=== PATIENT | male | born 1985 | race Caucasian/White ===

== ENCOUNTER 2017-04-03 22:55 | Inpatient (IN) | payer SELFPAY ==
[~2017-04-03] VITALS: Ht 182.9 cm; Wt 117.2 kg
[2017-04-03] MEDS ORDERED: ONDANSETRON INJ 2 MG/ML 2 ML VIAL IV STA (23:24)
[2017-04-03] MEDS ORDERED: SODIUM CHLORIDE 0.9% 1000ML 1,000 ML IV STA (23:24)
[2017-04-03] MEDS: MoRPHine SULFATE 4 MG/ML 1 ML CARP\\VIAL IV PRN (23:58)
[2017-04-04 00:05] LABS: BASO % 0.1 %; BASO ABS # 0.01 K/uL (0-0.2); COMPLETE YES; EOS % 0.1 %; HEMATOCRIT 41.1 % (42-52); IG% 0.3 %; LYMPH ABS # 0.23 K/uL (1.2-3.4); MEAN CELL VOLUME 86.9 fL (80-100); MEAN CORPUSCULAR HEMOGLOBIN 30.9 pg (25-34); MEAN CORPUSCULAR HGB CONC 35.5 g/dl (32-36); MEAN PLATELET VOLUME 9.3 fL (7.4-10.4); MONO % 3.4 %; NEUT % 93.1 %; PLATELET COUNT 225 K/uL (130-400); RED BLOOD COUNT 4.73 M/uL (4.7-6.1); WHITE BLOOD COUNT 7.75 K/uL (4.8-10.8)
[2017-04-04 00:11] LABS: MANUAL MICROSCOPIC REQUIRED? NO; REVIEW REQ? NO; URINE APPEARANCE CLEAR (CLEAR); URINE BILIRUBIN NEG (NEG); URINE COLOR DK YELLOW; URINE EPITHELIAL CELL AUTO 0-5 /lpf (0-5); URINE NITRITE NEG (NEG); URINE PH 5.5 (4.5-7.5); URINE SPECIFIC GRAVITY 1.028 (1.000-1.030); UROBILINOGEN NEG (NEG); ZZUR CULT IF INDIC CLEAN CATCH NO
[2017-04-04 00:24] LABS: BUN/CREATININE RATIO 21.4 (10-20); CALCIUM 8.6 mg/dl (8.5-10.1); CREATININE 0.82 mg/dl (0.60-1.40); POTASSIUM 4.2 mmol/L (3.5-5.1)
[2017-04-04] MEDS: MoRPHine SULFATE 4 MG/ML 1 ML CARP\\VIAL IV PRN ×11 (01:57→23:59)
[2017-04-04] MEDS ORDERED: ACETAMINOPHEN 325 MG TAB PO PRN (04:30)
[2017-04-04] MEDS ORDERED: ONDANSETRON INJ 2 MG/ML 2 ML VIAL IV PRN (04:30)
[2017-04-04] MEDS ORDERED: ALUMINUM/MAGNESIUM/SIMETH (MAALOX MAX) 30 ML UDC PO PRN (04:30)
[2017-04-04] MEDS ORDERED: MAGNESIUM HYDROXIDE SUSP 30 ML UDC PO PRN (04:30)
[2017-04-04] MEDS ORDERED: ZOLPIDEM TARTRATE 5 MG TAB PO PRN (04:30)
[2017-04-04] MEDS ORDERED: POLYETHYLENE (MIRALAX) 17 GM PACK PO PRN (04:30)
[2017-04-04] MEDS ORDERED: CIPROFLOXACIN 400MG / 200ML D5W ONE (04:40)
[2017-04-04] MEDS ORDERED: METRONIDAZOLE 500MG / 100ML NSS ONE (04:40)
[2017-04-04] MEDS ORDERED: METHYLPREDNISOLONE 125 MG VIAL IV STA (04:42)
--- NOTE | 2017-04-04 04:42 | History and Physical ---
History & Physical Date & Time of Service: Apr 04, 2017 at 04:08 Chief Complaint: Acute Crohns Flare-Up Primary Care Physician: No Doctor, Assigned History of Present Illness Source: patient 31M with a PMHX of Crohn's presents with a one day history of abdominal pain. 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 Pt does not have a PCP because he doesn't have insurance. He has not had diarrhea, just one loose stools today. Pt denies blood in the stool. Pt's last Crohn's flare was several years ago. Pt has not been taking his Remicade because he doesn't have insurance. ROS: No chest pain, no SOB, no dyspnea on exertion, no palpitations, no fevers, no chills, no nausea, no vomiting, no dysuria, no rash. PSHx: tonsillectomy Meds: used to take Adderrall but can't afford it now because he's not insured. SHx: non smoker, denies illicit substance abuse. Past Medical/Surgical History Medical Problems: (1) Crohns disease Status: Chronic Family History FH: cancer FH: heart disease Hypertension Social History Smoking Status: Never Smoker Smokeless Tobacco Use: No Alcohol Use: none Drug Use: none, heroin Marital Status: single Occupational Status: employed, [employer] student Immunizations History of Influenza Vaccine: Unknown History of Tetanus Vaccine?: Unknown History of Pneumococcal: Unknown History of Hepatitis B Vaccine: Unknown Multi-Drug Resistant Organisms History of MDRO: No Allergies Coded Allergies: NSAIDs (Verified Adverse Reaction, Severe, CHROHNS DISEASE, 04/03/17) Home Medications No Active Prescriptions or Reported Meds Review of Systems Constitutional: No fever, No chills Respiratory: No cough, No sputum, No shortness of breath Cardiovascular: No chest pain Abdomen: + pain, + nausea, No constipation Musculoskeletal: No joint pain Genitourinary - Male: No dysuria, No urinary hesitancy Integumentary: No rash Physical Exam Vital Signs Date Time Temp Pulse Resp B/P (MAP) Pulse Ox O2 Delivery O2 Flow Rate FiO2 04/04/17 03:53 113 20 130/68 96 Room Air 04/04/17 02:00 103 20 102/77 100 Room Air 04/04/17 01:00 103 20 154/84 100 Room Air 04/03/17 23:59 90 16 133/72 100 Room Air 04/03/17 22:59 37.0 108 20 143/90 97 General Appearance: WD/WN, no apparent distress Head: normocephalic Neck: supple, no JVD Respiratory/Chest: chest non-tender, lungs clear, normal breath sounds, no respiratory distress, no accessory muscle use Cardiovascular: regular rate, rhythm, no edema, no gallop, no JVD, no murmur, normal peripheral pulses Abdomen/GI: normal bowel sounds, soft, + pertinent finding (warm abdomen, rebound in the RLQ, tender to deep palpation in the RLQ) Back: no muscle spasm Extremities/Musculoskelatal: normal inspection, no calf tenderness, normal capillary refill, no pedal edema, normal range of motion Neurologic/Psych: no motor/sensory deficits, alert, normal reflexes, oriented x 3 Skin: no rash Diagnostics Laboratory Results Results Past 24 Hours Test 04/03/17 23:51 04/03/17 23:55 Range/Units Urine Color DK YELLOW Urine Appearance CLEAR CLEAR Urine pH 5.5 4.5-7.5 Urine Specific [place] 1.028 1.000-1.030 Urine Protein NEG NEG Urine Glucose (UA) NEG NEG Urine Ketones NEG NEG Urine Occult Blood NEG NEG Urine Nitrite NEG NEG Urine Bilirubin NEG NEG Urine Urobilinogen NEG NEG Urine Leukocyte Esterase NEG NEG Urine WBC (Auto) 0 0-5 /hpf Urine RBC (Auto) 0-4 0-4 /hpf Urine Hyaline Casts (Auto) 0 0-5 /lpf Urine Epithelial Cells (Auto) 0-5 0-5 /lpf Urine Bacteria (Auto) NEG NEG White Blood Count 7.75 4.8-10.8 K/uL Red Blood Count 4.73 4.7-6.1 M/uL Hemoglobin 14.6 14.0-18.0 g/dL Hematocrit 41.1 42-52 % Mean Corpuscular Volume 86.9 80-100 fL Mean Corpuscular Hemoglobin 30.9 25-34 pg Mean Corpuscular Hemoglobin Concent 35.5 32-36 g/dl Platelet Count 225 130-400 K/uL Mean Platelet Volume 9.3 7.4-10.4 fL Neutrophils (%) (Auto) 93.1 % Lymphocytes (%) (Auto) 3.0 % Monocytes (%) (Auto) 3.4 % Eosinophils (%) (Auto) 0.1 % Basophils (%) (Auto) 0.1 % Neutrophils # (Auto) 7.22 1.4-6.5 K/uL Lymphocytes # (Auto) 0.23 1.2-3.4 K/uL Monocytes # (Auto) 0.26 0.11-0.59 K/uL Eosinophils # (Auto) 0.01 0-0.5 K/uL Basophils # (Auto) 0.01 0-0.2 K/uL RDW Standard Deviation 39.4 36.4-46.3 fL RDW Coefficient of Variation 12.3 11.5-14.5 % Immature Granulocyte % (Auto) 0.3 % Immature Granulocyte # (Auto) 0.02 0.00-0.02 K/uL Sodium Level 141 136-145 mmol/L Potassium Level 4.2 3.5-5.1 mmol/L Chloride Level 109 98-107 mmol/L Carbon Dioxide Level 24 21-32 mmol/L Anion Gap 8.0 3-11 mmol/L Blood Urea Nitrogen 18 7-18 mg/dl Creatinine 0.82 0.60-1.40 mg/dl Est Creatinine Clear Calc Drug Dose 174.1 ml/min Estimated GFR () 137.5 Estimated GFR (Non- 118.7 BUN/Creatinine Ratio 21.4 10-20 Random Glucose 94 70-99 mg/dl Calcium Level 8.6 8.5-10.1 mg/dl Total Bilirubin 0.9 0.2-1 mg/dl Direct Bilirubin 0.2 0-0.2 mg/dl Aspartate Amino Transf (AST/SGOT) 18 15-37 U/L Alanine Aminotransferase (ALT/SGPT) 29 12-78 U/L Alkaline Phosphatase 97 45-117 U/L Total Protein 6.7 6.4-8.2 gm/dl Albumin 3.5 3.4-5.0 gm/dl Lipase 82 73-393 U/L Impression Assessment and Plan 31M with a PMHX of Crohn's p/w a one day history of abdominal pain. CT findings are consistent with a crohn's flare. Pt was admitted for treatment with steroids, Abx and IVF. Morphine is on for pain control. GI consulted ( Dr. Baxter). Abdominal Pain 2/2 Crohn's Flare - Solu-Medrol 60mg IV Q6 - Cipro 400mg Q12 IV + Flagyl 500m Q8 IV - NPO - Zofran PRN - IVF 125mls/hr - Pain control with Morphine IV 3mg Q2H - GI Consult in Place - Famotidine IV 20mg BID DVT Proph: SCDs Social - No insurance Dispo - Med Surg, Admit, NPO Full Code Attending Addendum: I have physically seen and examined this patient, have directed the resident's medical activities, and agree with the H&P as noted above with the following exceptions as noted. The patient is awake, alert and oriented 3, well-developed and well-nourished , normocephalic and atraumatic, lying in bed and in no acute distress. HEENT--PERRL, EOMI, mucous membranes and oropharynx dry. Neck--supple, no JVD or bruits, thyroid normal, trachea midline, no adenopathy. Heart--normal S1 and S2, no extra beats, no murmurs, rubs or gallops. Lungs--clear bilaterally with good air movement, no respiratory distress, no accessory muscle use. Abdomen--normal bowel sounds and soft, mild generalized tenderness, worse right lower quadrant. Nondistended, no hernias or masses, no organomegaly. Extremities--no cyanosis, clubbing or edema. There are good distal pulses b/l. Dermatologic--normal skin turgor, normal color, warm and dry, no abnormal lymph nodes, no rash. Neurologic--cranial nerves II through XII grossly intact, motor and sensory examination normal. Rheumatologic--normal range of motion, nontender, muscles and joints. Psychiatric--normal affect. Assessment and Plan: Crohn's exacerbation-- Nothing by mouth Solu-Medrol 60 mg IV every 6 hours Cipro 400 mg IV every 12 hours. Flagyl 500 mg IV every 8 hours Famotidine 20 mg IV every 12 hours. Normal saline with KCl 20 mEq 125mils per hour Morphine 3 mg IV every 2 hours when necessary Zofran 4 mg IV every 6 hours when necessary Consult gastroenterology. Level of Care Med/Surg Advanced Directives Existing Advance Directive: No Existing Living Will: No Existing Power of Manager Urgent Care: No Resuscitation Status FULL RESUSCITATION VTE Prophylaxis Risk Level: Low Resident Involvement: Resident Care Provided Care Provided: Adult Hospital Medicine
[2017-04-04] MEDS ORDERED: ONDANSETRON 4MG OD TAB PO PRN (04:45)
[2017-04-04] MEDS: CIPROFLOXACIN / D5W 400 MG in PREMIXED IN D5W 200 ML IV SCH ×2 (04:48→17:27)
[2017-04-04] MEDS: METRONIDAZOLE / NSS 500 MG in PREMIXED NSS 100 ML IV SCH ×3 (04:49→19:24)
--- NOTE | 2017-04-04 04:58 | EMERGENCY ROOM VISIT NOTE ---
History Report prepared by [place]: Michelle Sims Under the Supervision of: Dr. Abdullahi Magallanes D.O. First contact with patient: 23:12 Chief Complaint: OTHER COMPLAINT Stated Complaint: ACUTE CROHNS FLARE-UP History of Present Illness The patient is a 31 year old male who presents to the Emergency Room with complaints of intermittent abdominal pain starting 1100 this morning. The patient has a history of Crohn's disease. He experiences flare ups with stress and taking NSAIDs. He has been under stress at work recently and taking NSAIDs for a toothache. This morning, he started feeling the pain and stopped eating. He usually stops eating and drinks fluids when his Crohn's flare ups occur. He last ate food at 1100. The pain comes every 3-4 minutes. He describes it at stabbing. He has been taking Tylenol to no significant relief. He reports nausea and diarrhea. He denies vomiting. His last bowel movement was earlier today. Source of History: patient Onset: 1100 this morning Position: abdomen Quality: stabbing Timing: intermittent Associated Symptoms: + nausea, + diarrhea, No vomiting Review of Systems See HPI for pertinent positives & negatives. A total of 10 systems reviewed and were otherwise negative. Past Medical & Surgical Medical Problems: (1) Crohn's colitis (2) Crohns disease Family History FH: cancer FH: heart disease Hypertension Social History Smoking Status: Never Smoker Alcohol Use: occasionally Drug Use: heroin Marital Status: single Housing Status: lives with roommate Occupation Status: employed, [employer] student Current/Historical Medications No Active Prescriptions or Reported Meds Allergies Coded Allergies: NSAIDs (Verified Adverse Reaction, Severe, CHROHNS DISEASE, 04/03/17) Physical Exam Vital Signs Date Time Temp Pulse Resp B/P (MAP) Pulse Ox O2 Delivery O2 Flow Rate FiO2 04/04/17 03:53 113 20 130/68 96 Room Air 04/04/17 02:00 103 20 102/77 100 Room Air 04/04/17 01:00 103 20 154/84 100 Room Air 04/03/17 23:59 90 16 133/72 100 Room Air 04/03/17 22:59 37.0 108 20 143/90 97 Physical Exam CONSTITUTIONAL/VITAL SIGNS: Reviewed / noted above. GENERAL: Non-toxic in appearance. INTEGUMENTARY: Warm, dry, and [place]. HEAD: Normocephalic. EYES: without scleral icterus or trauma. ENT/OROPHARYNX: clear and moist. LYMPHADENOPATHY/NECK: Is supple without lymphadenopathy or meningismus. RESPIRATORY: Lungs clear and equal. CARDIOVASCULAR: Regular rate and rhythm. GI/ABDOMEN: Soft. Mild mid abdominal tenderness. No organomegaly or pulsatile mass. No rebound or guarding. Normal bowel sounds. EXTREMITIES: Warm and well perfused. BACK: No CVA tenderness. NEUROLOGICAL: Intact without focal deficits. PSYCHIATRIC: normal affect. MUSCULOSKELETAL: Normally developed with good muscle tone. Medical Decision & Procedures ER Provider Diagnostic Interpretation: X ray results and stated below per my interpretation and radiology review. Radiology results as stated below per my review and [facility] radiologist interpretation: Chest/Abdomen X-ray: Multiple air-fluid levels. Possible bilious vs small bowel obstruction. Chest X- ray shows no acute disease. CT Abdomen & Pelvis: Comparison: CT abdomen and pelvis 04/29/13. Circumferential wall thickening of the distal ileum with upstream small bowel dilatation. Findings are compatible with Crohn's flare. There is trace free fluid in the right lower quadrant. Small bowel feces sign in the lower mid abdomen with focal small bowel dilatation to 5.3 cm. There is mild focal luminal narrowing (axial image 82) with slightly less small bowel dilatation distally. This may represent a mild area of structuring. Normal appendix. No free air. Laboratory Results 04/03/17 23:55 Red Blood Count 4.73, Mean Corpuscular Volume 86.9, Mean Corpuscular Hemoglobin 30.9, Mean Corpuscular Hemoglobin Concent 35.5, Mean Platelet Volume 9.3, Neutrophils (%) (Auto) 93.1, Lymphocytes (%) (Auto) 3.0, Monocytes (%) (Auto) 3.4, Eosinophils (%) (Auto) 0.1, Basophils (%) (Auto) 0.1, Neutrophils # (Auto) 7.22, Lymphocytes # (Auto) 0.23, Monocytes # (Auto) 0.26, Eosinophils # (Auto) 0.01, Basophils # (Auto) 0.01 04/03/17 23:55 Test 04/03/17 23:51 04/03/17 23:55 Urine Color DK YELLOW Urine Appearance CLEAR (CLEAR) Urine pH 5.5 (4.5-7.5) Urine Specific [place] 1.028 (1.000-1.030) Urine Protein NEG (NEG) Urine Glucose (UA) NEG (NEG) Urine Ketones NEG (NEG) Urine Occult Blood NEG (NEG) Urine Nitrite NEG (NEG) Urine Bilirubin NEG (NEG) Urine Urobilinogen NEG (NEG) Urine Leukocyte Esterase NEG (NEG) Urine WBC (Auto) 0 /hpf (0-5) Urine RBC (Auto) 0-4 /hpf (0-4) Urine Hyaline Casts (Auto) 0 /lpf (0-5) Urine Epithelial Cells (Auto) 0-5 /lpf (0-5) Urine Bacteria (Auto) NEG (NEG) White Blood Count 7.75 K/uL (4.8-10.8) Red Blood Count 4.73 M/uL (4.7-6.1) Hemoglobin 14.6 g/dL (14.0-18.0) Hematocrit 41.1 % (42-52) Mean Corpuscular Volume 86.9 fL (80-100) Mean Corpuscular Hemoglobin 30.9 pg (25-34) Mean Corpuscular Hemoglobin Concent 35.5 g/dl (32-36) Platelet Count 225 K/uL (130-400) Mean Platelet Volume 9.3 fL (7.4-10.4) Neutrophils (%) (Auto) 93.1 % Lymphocytes (%) (Auto) 3.0 % Monocytes (%) (Auto) 3.4 % Eosinophils (%) (Auto) 0.1 % Basophils (%) (Auto) 0.1 % Neutrophils # (Auto) 7.22 K/uL (1.4-6.5) Lymphocytes # (Auto) 0.23 K/uL (1.2-3.4) Monocytes # (Auto) 0.26 K/uL (0.11-0.59) Eosinophils # (Auto) 0.01 K/uL (0-0.5) Basophils # (Auto) 0.01 K/uL (0-0.2) RDW Standard Deviation 39.4 fL (36.4-46.3) RDW Coefficient of Variation 12.3 % (11.5-14.5) Immature Granulocyte % (Auto) 0.3 % Immature Granulocyte # (Auto) 0.02 K/uL (0.00-0.02) Anion Gap 8.0 mmol/L (3-11) Est Creatinine Clear Calc Drug Dose 174.1 ml/min Estimated GFR () 137.5 Estimated GFR (Non- 118.7 BUN/Creatinine Ratio 21.4 (10-20) Calcium Level 8.6 mg/dl (8.5-10.1) Total Bilirubin 0.9 mg/dl (0.2-1) Direct Bilirubin 0.2 mg/dl (0-0.2) Aspartate Amino Transf (AST/SGOT) 18 U/L (15-37) Alanine Aminotransferase (ALT/SGPT) 29 U/L (12-78) Alkaline Phosphatase 97 U/L (45-117) Total Protein 6.7 gm/dl (6.4-8.2) Albumin 3.5 gm/dl (3.4-5.0) Lipase 82 U/L (73-393) Laboratory results as stated above per my review. Medications Administered Medications (Trade) Dose Ordered Sig/Mayda Route Start Time Stop Time Status Last Admin Dose Admin Sodium Chloride 1,000 ml @ 999 mls/hr Q1H1M STAT IV 04/03/17 23:24 04/04/17 00:24 DC 04/03/17 23:53 999 MLS/HR Ondansetron HCl (Zofran Inj) 4 mg NOW STAT IV 04/03/17 23:24 04/03/17 23:26 DC 04/03/17 23:53 4 MG Morphine Sulfate (MoRPHine SULFATE INJ) 4 mg Q1H PRN IV 04/03/17 23:30 04/04/17 04:43 DC 04/04/17 03:53 4 MG Metronidazole 500 mg/Prmx 100 ml @ 100 mls/hr Q8H IV 04/04/17 04:30 04/14/17 04:29 04/04/17 04:49 100 MLS/HR Ciprofloxacin/ Dextrose 400 mg/ Prmx 200 ml @ 100 mls/hr Q12H IV 04/04/17 05:00 04/14/17 04:59 04/04/17 04:48 100 MLS/HR Methylprednisolone Sodium Succinate (Solu-Medrol IV) 60 mg NOW STAT IV 04/04/17 04:42 04/04/17 04:43 DC 04/04/17 04:50 60 MG ED Course 2316: Previous medical records were reviewed. The patient was evaluated in room C12B. A complete history and physical examination was performed. 2324: Zofran Inj 4 mg IV, NSS 1000 ml @ 999 mls/hr IV. 2330: Morphine Sulfate 4 mg IV. 0150: I reevaluated the patient. He is resting comfortably. He will go for a CT. 0343: On reevaluation, the patient is resting comfortably. I discussed the results and findings with him. He verbalized agreement of the treatment plan. The patient will be evaluated for further management and care. 0351: I discussed the patient's case with Dr. Calvillo, [facility] hospitalist. The patient will be evaluated for further treatment and disposition. Medical Decision Differential considered: pancreatitis, hepatitis, or acute cholecystitis, AAA, UTI, pyelonephritis, kidney stones, appendicitis, diverticulitis, shingles, bowel obstruction mesenteric ischemia, intussusception,hernia, testicular torsion. This is a 31-year-old male who presents to the ED with a chief complaint of a possible Crohn's flare. The patient states that he has an ulcer in his ileum and has had nausea and pain in the supraumbilical area. He states this is similar to previous Crohn's flare. He has not followed up with a GI specialist for more than a year. He is not taking any medications for Crohn's disease. Based on review of his records here, he does have a history of Crohn's disease. Reports a little diarrhea. No blood in the stools. He denies any vomiting but has had a little nausea. His vital signs are stable. His physical exam reveals some mild tenderness in the periumbilical area. He does not appear to be in any distress. He does not appear to be uncomfortable. He initially declined CT scan as he states he has no insurance. His CBC is normal, urine did not show infection, complete metabolic panel was normal, acute abdominal series xray did show partial obstructive changes but no acute pulmonary process. A CT scan of the abdomen and pelvis was then performed. This revealed findings concerning for acute Crohn's flare. He was treated with IV morphine, IV Zofran and IV fluids. He was told the results of the tests. The patient will be seen by the hospitalist service for further inpatient evaluation and care. Medication Reconcilliation Current Medication List: was personally reviewed by me Blood Pressure Screening Patient's blood pressure: Normal blood pressure Blood pressure disposition: Did not require urgent referral Consults Time Called: 034 Consulting Physician: Dr. Calvillo, [facility] hospitalist Returned Call: [phone] Discussed the patient's case. The patient will be evaluated for further treatment and disposition. Impression Primary Impression: Abdominal pain Additional Impression: Crohn's colitis Scribe Attestation The scribe's documentation has been prepared under my direction and personally reviewed by me in its entirety. I confirm that the note above accurately reflects all work, treatment, procedures, and medical decision making performed by me. Departure Information Dispostion Being Evaluated By Hospitalist Prescriptions No Active Prescriptions or Reported Meds Referrals No Doctor, Assigned (PCP) Patient Instructions My [facility] Problem Qualifiers
[2017-04-04] MEDS: D5W AND 1/2NSS + 20MEQ KCL 1,000 ML IV SCH ×3 (06:17→21:25)
[2017-04-04 06:22] VITALS: BP 111/68; PULSE 91; TEMP 37.5; Ht 182.9 cm; Wt 117.2 kg
--- NOTE | 2017-04-04 06:22 | DIAGNOSTIC IMAGING REPORT ---
ABDOMEN 2VIEW W/PA CHEST RTN CLINICAL HISTORY: ABDOMINAL PAIN/GI pain COMPARISON STUDY: No previous studies for comparison. FINDINGS: Lungs are clear. Mild generalized ileus. No evidence of bowel distention. No secondary evidence for free air. IMPRESSION: Generalized ileus. Negative chest. The above report was generated using voice recognition software. It may contain grammatical, syntax or spelling errors. Electronically signed by: Sage Calvo M.D. 04/04/2017 6:21 AM Dictated Date/Time: 04/04/2017 6:20 AM
--- NOTE | 2017-04-04 07:17 | DIAGNOSTIC IMAGING REPORT ---
ABD/PELVIS NO IV OR ORAL CONT CT DOSE: 985.59 mGy.cm HISTORY: Pain abd pain TECHNIQUE: Multiaxial CT images of the abdomen and pelvis were performed without contrast. A dose lowering technique was utilized adhering to the principles of ALARA. COMPARISON STUDY: 04/29/2013 FINDINGS: Lung bases are clear. Liver spleen and pancreas are unremarkable. Kidneys negative for hydronephrosis or calcification. Normal appendix. Moderate wall thickening of the distal and terminal ileum. Mild proximal small bowel distention. Findings suggest inflammatory bowel change and/or Crohn's disease. The colonic pattern is nonobstructive. Trace free fluid within the pelvic cul-de-sac. IMPRESSION: 1. Findings suggesting moderate wall thickening of the distal and terminal ileum with more proximal small bowel distention. 2. The appearance suggests active inflammatory bowel change and/or Crohn's disease. 3. No evidence for abscess or collection within limitations of an unenhanced scan. 4. Small amount of reactive free fluid within the pelvic cul-de-sac. The above report was generated using voice recognition software. It may contain grammatical, syntax or spelling errors. Electronically signed by: Sage Calvo M.D. 04/04/2017 7:16 AM Dictated Date/Time: 04/04/2017 7:13 AM
[2017-04-04 07:23] VITALS: BP 107/62; PULSE 91; TEMP 37.3; O2SAT 96
--- NOTE | 2017-04-04 08:03 | Progress Note ---
Subjective Date of Service: Apr 04, 2017. Subjective pt has had no bowel movements but has had flatus, pain is tolerable Problem List Medical Problems: (1) Abdominal pain Status: Acute (2) Odontalgia Status: Acute Review of Systems Constitutional: No fever, No chills Respiratory: No cough, No dyspnea on exertion Abdomen: No pain, No nausea, No vomiting, No diarrhea, No constipation Objective Vital Signs Date Time Temp Pulse Resp B/P (MAP) Pulse Ox O2 Delivery O2 Flow Rate FiO2 04/04/17 07:23 37.3 91 20 107/62 (77) 96 Room Air 04/04/17 06:22 37.5 91 18 111/68 Room Air 04/04/17 05:11 108 18 130/66 97 04/04/17 05:04 108 18 130/66 97 Room Air 04/04/17 03:53 113 20 130/68 96 Room Air 04/04/17 02:00 103 20 102/77 100 Room Air 04/04/17 01:00 103 20 154/84 100 Room Air 04/03/17 23:59 90 16 133/72 100 Room Air 04/03/17 22:59 37.0 108 20 143/90 97 Physical Exam General Appearance: WD/WN, no apparent distress Eyes: PERRL, EOMI Respiratory/Chest: chest non-tender, lungs clear, normal breath sounds Cardiovascular: regular rate, rhythm, no murmur Abdomen: normal bowel sounds, non tender, soft Extremities: no pedal edema, no calf tenderness Laboratory Results Last 24 Hours Test 04/03/17 23:51 04/03/17 23:55 Urine Color DK YELLOW Urine Appearance CLEAR Urine pH 5.5 Urine Specific [place] 1.028 Urine Protein NEG Urine Glucose (UA) NEG Urine Ketones NEG Urine Occult Blood NEG Urine Nitrite NEG Urine Bilirubin NEG Urine Urobilinogen NEG Urine Leukocyte Esterase NEG Urine WBC (Auto) 0 /hpf Urine RBC (Auto) 0-4 /hpf Urine Hyaline Casts (Auto) 0 /lpf Urine Epithelial Cells (Auto) 0-5 /lpf Urine Bacteria (Auto) NEG White Blood Count 7.75 K/uL Red Blood Count 4.73 M/uL Hemoglobin 14.6 g/dL Hematocrit 41.1 % Mean Corpuscular Volume 86.9 fL Mean Corpuscular Hemoglobin 30.9 pg Mean Corpuscular Hemoglobin Concent 35.5 g/dl Platelet Count 225 K/uL Mean Platelet Volume 9.3 fL Neutrophils (%) (Auto) 93.1 % Lymphocytes (%) (Auto) 3.0 % Monocytes (%) (Auto) 3.4 % Eosinophils (%) (Auto) 0.1 % Basophils (%) (Auto) 0.1 % Neutrophils # (Auto) 7.22 K/uL Lymphocytes # (Auto) 0.23 K/uL Monocytes # (Auto) 0.26 K/uL Eosinophils # (Auto) 0.01 K/uL Basophils # (Auto) 0.01 K/uL RDW Standard Deviation 39.4 fL RDW Coefficient of Variation 12.3 % Immature Granulocyte % (Auto) 0.3 % Immature Granulocyte # (Auto) 0.02 K/uL Sodium Level 141 mmol/L Potassium Level 4.2 mmol/L Chloride Level 109 mmol/L Carbon Dioxide Level 24 mmol/L Anion Gap 8.0 mmol/L Blood Urea Nitrogen 18 mg/dl Creatinine 0.82 mg/dl Est Creatinine Clear Calc Drug Dose 174.1 ml/min Estimated GFR () 137.5 Estimated GFR (Non- 118.7 BUN/Creatinine Ratio 21.4 Random Glucose 94 mg/dl Calcium Level 8.6 mg/dl Total Bilirubin 0.9 mg/dl Direct Bilirubin 0.2 mg/dl Aspartate Amino Transf (AST/SGOT) 18 U/L Alanine Aminotransferase (ALT/SGPT) 29 U/L Alkaline Phosphatase 97 U/L Total Protein 6.7 gm/dl Albumin 3.5 gm/dl Lipase 82 U/L Assessment and Plan 31M with a PMHX of Crohn's CT findings are consistent with a crohn's flare. GI consulted (Dr. Baxter). Abdominal Pain 2/2 Crohn's Flare, IVF, flatus not diarrhea - Solu-Medrol 60mg IV Q6 Cipro 400mg Q12 IV + Flagyl 500m Q8 IV, GI Consult Abdominal pain Morphine IV 3mg Q2H DVT Proph: SCDs social service may need insurance counselling
[2017-04-04] MEDS: FAMOTIDINE IV INJ 20 MG in DEXTROSE 5% 100ML 100 ML IV SCH ×2 (08:15→21:24)
--- NOTE | 2017-04-04 12:23 | GASTROINTESTINAL CONSULTATION ---
DATE OF CONSULTATION: 04/04/2017 REFERRED BY: Dr. Lakhwinder Mejia. I was asked by Dr. Mejia to consult on this gentleman for evaluation of abdominal pain and history of Crohn disease. HISTORY OF PRESENT ILLNESS: The patient is a 31-year-old who has a long history of Crohn disease and previous Remicade treatment who has now been off therapy for his Crohn's for years. He began having right lower and periumbilical pain several days prior to admission. The pain got worse. He had some also associated nausea but no vomiting and eventually came to the Emergency Room, showing evidence of inflammation in his ileum. He had a previous admission for this several years ago with the same presentation. He has been under a lot of stress at work, has not been eating as well as he had been and again is on no medications. He denies fever. He denies rectal bleeding. He has had no vomiting. He denies any significant weight loss. He is typically followed by Dr. Baxter. PAST MEDICAL HISTORY: I reviewed his medical records and past medical history and his past medical history is significant for what is already mentioned as well as history of ADD. He previously took Adderall, but has not been on any medications. SOCIAL HISTORY: He denies any smoking. From a social standpoint, he drinks occasionally. FAMILY HISTORY: Negative for gastrointestinal disease. ALLERGIES: He denies any drug allergies. Again, he is on no outpatient medications. REVIEW OF SYSTEMS: As above, otherwise he denies any change in vision or hearing. He has had no productive cough or sputum production. He has no shortness of breath or palpitations. He denies any seizures. He denies any change in mood. He has had no rashes, pruritus or icterus. He denies any joint swelling. He denies any heat or cold intolerance. He denies any polyuria or polydipsia. He has had no dysuria. He denies any myalgias. He has had tooth pain from a bad tooth and has been taking ibuprofen for this. PHYSICAL EXAMINATION: GENERAL: Reveals a gentleman resting in bed in no distress. VITAL SIGNS: Most recent temperature is 37.3, pulse is 91, blood pressure is 107/62. SKIN: Anicteric. HEENT: Eyes show anicteric sclerae. Mouth clear of lesions. NECK: Supple. CHEST: Clear. HEART: Regular rate and rhythm. ABDOMEN: Benign with good bowel sounds. There is no organomegaly, masses, rebound tenderness noted. EXTREMITIES: Warm with good distal pulses. NEUROLOGIC: He is grossly intact. Alert and oriented x3. LABORATORY DATA: Show a white blood cell count of 7.7, hemoglobin of 14.6 and a platelet count of 225,000. Liver enzymes are normal and imaging is as above, showing moderate wall thickening of the distal and terminal ileum with some more proximal small bowel distention. IMPRESSION: A 31-year-old gentleman with abnormal x-ray findings consistent with his prior history of Crohn disease. I do not think this is a full blown small bowel obstruction. 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 I agree with IV steroids and antibiotics. He ultimately should be on long-term maintenance therapy with products such as Remicade again. He will follow up with Dr. Baxter tomorrow who is back on service. There is no reason he cannot try some clears and see if he tolerates this, but I would not advance his diet any further until at least tomorrow. EZIO
[2017-04-04] MEDS: METHYLPREDNISOLONE IV 60 MG in SYRINGE 0 ML IV SCH ×3 (13:21→23:58)
[2017-04-04 15:00] VITALS: BP 100/62; PULSE 86; TEMP 37.4; O2SAT 98
[2017-04-04] MEDS ORDERED: INFLUENZA ADMINISTRATION CHARGE ONE (17:30)
[2017-04-04] MEDS ORDERED: INFLUENZA VIRUS QUAD VACCINE 0.5 ML SYR IM. ONE (17:30)
[2017-04-04 22:52] VITALS: BP 144/70; PULSE 64; TEMP 37; O2SAT 98
[2017-04-05] MEDS: MoRPHine SULFATE 4 MG/ML 1 ML CARP\\VIAL IV PRN ×6 (03:09→20:49)
[2017-04-05] MEDS: CIPROFLOXACIN / D5W 400 MG in PREMIXED IN D5W 200 ML IV SCH ×2 (04:32→17:07)
[2017-04-05] MEDS: METRONIDAZOLE / NSS 500 MG in PREMIXED NSS 100 ML IV SCH ×3 (04:32→20:42)
[2017-04-05] MEDS: D5W AND 1/2NSS + 20MEQ KCL 1,000 ML IV SCH ×3 (04:32→21:51)
[2017-04-05] MEDS: METHYLPREDNISOLONE IV 60 MG in SYRINGE 0 ML IV SCH ×3 (05:12→17:07)
[2017-04-05 07:49] VITALS: BP 140/80; PULSE 50; TEMP 36.5; O2SAT 97
[2017-04-05] MEDS: FAMOTIDINE IV INJ 20 MG in DEXTROSE 5% 100ML 100 ML IV SCH ×2 (08:35→21:51)
--- NOTE | 2017-04-05 08:58 | Hospitalist Progress Note ---
Hospitalist Progress Note Date of Service Apr 05, 2017. (Aleshia West PA-C) Subjective Pt evaluation today including: conversation w/ patient, physical exam, chart review, lab review, review of studies Pain: Mild PO Intake: Clears Voiding: no voiding problems The patient was seen and examined this morning. Pt reports feeling a little better today compared to yesterday but he is still having abdominal pain near his umbilicus. He is passing gas but has not had a BM since Wednesday night at 1999. At that time the BM was soft, brown, and no signs of blood or streaking, not tarry. Pt denies nausea. He tolerated clears this morning with jello, frozen ice, soda, and a few other items without difficulty. He hasn't yet seen GI today. Denies any fevers, sweats or chills. Constitutional: No fever, No chills, No sweats Eyes: No redness, No diplopia ENT: No nasal symptoms, No trouble swallowing Respiratory: No cough, No shortness of breath Cardiovascular: No chest pain, No orthopnea, No edema Abdomen: + pain, + nausea, No vomiting, No diarrhea, No constipation, No GI bleeding Musculoskeletal: No joint pain, No muscle pain, No swelling Male : No dysuria, No incontinence Neurologic: No weakness, No numbness/tingling Skin: No rash, No itch (Aleshia West PA-C) Objective Vital Signs Date Time Temp Pulse Resp B/P (MAP) Pulse Ox O2 Delivery O2 Flow Rate FiO2 04/05/17 07:49 36.5 50 24 140/80 (100) 97 Room Air 04/05/17 00:00 Room Air 04/04/17 22:52 37.0 64 16 144/70 (94) 98 Room Air 04/04/17 20:00 Room Air 04/04/17 16:00 Room Air 04/04/17 15:00 37.4 86 20 100/62 (75) 98 Room Air (Aleshia West PA-C) Physical Exam General Appearance: WD/WN, no apparent distress Eyes: PERRL, EOMI ENT: hearing grossly normal, pharynx normal Neck: supple, no JVD Respiratory/Chest: chest non-tender, lungs clear, no respiratory distress, no accessory muscle use Cardiovascular: regular rate, rhythm, no murmur Abdomen: normal bowel sounds, soft, + tenderness Extremities: non-tender, no pedal edema Neurologic/Psychiatric: alert, normal mood/affect, oriented x 3 Skin: normal color, warm/dry (Aleshia West, RL) Assessment and Plan 31 yo M with a PMHX of Crohn's CT findings are consistent with a crohn's flare. GI consulted (Dr. Baxter). Abdominal Pain 2/2 Crohn's Flare - IVF- trial of clears tolerated without difficulty, but no further advancement until seen by Dr. Baxter today - No BM since wednesday, +flatus, no n/v/d/c. - Afebrile, no leukocytosis and pain is improving. - Previous treatment of Remicade worked well but has not been on this for 1-2 years secondary to insurance. He had been on the medication for a total of 1 year and did not have flares on it. - Solu-Medrol 60mg IV Q6, Cipro 400mg Q12 IV + Flagyl 500m Q8 IV - day #2 - will likely be able to transition to oral meds within 2 days. - Abdominal pain Morphine IV 3mg Q2H - pt is still requiring this as scheduled. DVT Proph: SCDs, ambulatory Social service may need insurance counselling/payment plans prior to discharge. CODE STATUS: FULL CODE Disposition: From home, discharge when medically stable, possible in ~2 days. (Aleshia West, RL) Attending Attestation: Pt seen/examined, chart reviewed, care plan d/w MELISSA West. I agree w/ the jeter components of her documentation. Feeling better Abd pain significantly improved no emesis no diarrhea tolerating clears VSS abd - soft, NT, ND, BS+ A/P: Crohn's disease with exacerbation - appreciate GI consultation. Cont steroids. role for abx?? defer to GI. Tolerating diet; advancement per GI. SW consult to assist with securing health insurance. Miguel Ángel SANTANA MD (Naresh Santana MD)
--- NOTE | 2017-04-05 09:32 | Gastroenterology Progress Note ---
Progress Note Date of Service: Apr 05, 2017 Subjective Pt evaluation today including: conversation w/ patient, physical exam, chart review, lab review, review of studies, review of inpatient medication list Patient reports improvement in abdominal pain since starting IV steroids, antibiotics and Morphine. He rates his pain at present s 3/10 at present. No nausea or vomiting. He is passing flatus but no bowel movement since arrival. He did have one bm yesterday [employer]. Tolerating clear liquids. Laboratory testing reviewed from yesterday. No anemia. Last outpatient GI visit was approximately 1 1/2 years ago. He was just starting Remicade at that time. He states he lost his insurance and "wasn't worried about it" as he states he was not having any GI symptoms and did not like the side effects from Remicade. Review of Systems Constitutional: No fever, No chills Respiratory: No problem reported Cardiac: No problem reported Abdomen: + see HPI Musculoskeletal: No problem reported Medications Current Inpatient Medications Medications (Trade) Dose Ordered Sig/Mayda Route Start Time Stop Time Status Last Admin Dose Admin Acetaminophen (Tylenol Tab) 650 mg Q4H PRN PO 04/04/17 04:30 05/04/17 04:29 Al Hydrox/Mg Hydrox/Simethicone (Maalox Max Susp) 15 ml Q4H PRN PO 04/04/17 04:30 05/04/17 04:29 Magnesium Hydroxide (Milk Of Magnesia Susp) 30 ml Q6H PRN PO 04/04/17 04:30 05/04/17 04:29 Polyethylene (Miralax Powder Packet) 17 gm DAILY PRN PO 04/04/17 04:30 05/04/17 04:29 Zolpidem Tartrate (Ambien Tab) 5 mg HSZ PRN PO 04/04/17 04:30 05/04/17 04:29 Ondansetron HCl (Zofran Inj) 4 mg Q6H PRN IV 04/04/17 04:30 05/04/17 04:29 Potassium Chloride/Dextrose/ Sod Cl 1,000 ml @ 125 mls/hr Q8H IV 04/04/17 06:00 05/04/17 05:59 04/05/17 04:32 125 MLS/HR Methylprednisolone Sodium Succinate 60 mg/Syringe 0.96 ml @ 1.5 mls/min Q6 IV 04/04/17 12:00 05/04/17 11:59 04/05/17 05:12 1.5 MLS/MIN Famotidine 20 mg/ Dextrose 102 ml @ 200 mls/hr Q12H IV 04/04/17 09:00 05/04/17 08:59 04/05/17 08:35 200 MLS/HR Metronidazole 500 mg/Prmx 100 ml @ 100 mls/hr Q8H IV 04/04/17 04:30 04/14/17 04:29 04/05/17 04:32 100 MLS/HR Ciprofloxacin/ Dextrose 400 mg/ Prmx 200 ml @ 100 mls/hr Q12H IV 04/04/17 05:00 04/14/17 04:59 04/05/17 04:32 100 MLS/HR Morphine Sulfate (MoRPHine SULFATE INJ) 3 mg Q2H PRN IV 04/04/17 04:30 04/18/17 04:29 04/05/17 07:57 3 MG Ondansetron HCl (Zofran Odt) 4 mg Q4H PRN PO 04/04/17 04:45 05/04/17 04:44 Objective Vital Signs Date Time Temp Pulse Resp B/P (MAP) Pulse Ox O2 Delivery O2 Flow Rate FiO2 04/05/17 07:49 36.5 50 24 140/80 (100) 97 Room Air 04/05/17 00:00 Room Air 04/04/17 22:52 37.0 64 16 144/70 (94) 98 Room Air 04/04/17 20:00 Room Air 04/04/17 16:00 Room Air 04/04/17 15:00 37.4 86 20 100/62 (75) 98 Room Air Physical Exam General Appearance: no apparent distress Eyes: EOMI ENT: hearing grossly normal Neck: supple Respiratory/Chest: lungs clear, normal breath sounds, no respiratory distress Cardiovascular: regular rate, rhythm, no gallop, no murmur Abdomen: soft, + abnormal bowel sounds (hypoactive), + tenderness (RLQ) Extremities: no pedal edema Neurologic/Psych: alert, normal mood/affect, oriented x 3 Skin: warm/dry Assessment and Plan Patient is a 31 year-old male with a long-standing history of ileostenosing Crohn's disease who remains medically noncompliant and self discontinued Remicade therapy admitted with PSBO, RLQ pain consistent with Crohn's flare off maintenance therapy. I had a long discussion with the patient in regard to risks of untreated Crohn' s disease such as: worsening stenosis and need for surgery, fistula formation, abscess and ongoing GI symptomatology. He states "I will have to think about it " in regard to restarting Remicade. I did inform him that we do not advise him to remain off biologic therapy as his risk for complete obstruction is high. In the interim, recommend continuation of IV Solu-Medrol and antibiotic therapy as prescribed. Clear liquids today with slow advancement as tolerated. Agree with JAKE Mcdonald as above Abd: Soft, Tender, ND Continue current therapy Recommend Colorectal surgery consult as outpatient. Discussed Remicade patient assistance program, as well as other medication assistance programs. Informed him of the absolute necessity of chronic therapy for his chronic disease.
[2017-04-05 10:54] VITALS: O2SAT 97
[2017-04-05 14:32] VITALS: BP 118/71; PULSE 51; TEMP 36.8; O2SAT 97
[2017-04-05 22:17] VITALS: BP 116/71; PULSE 53; TEMP 36.7; O2SAT 96
[2017-04-06] MEDS: MoRPHine SULFATE 4 MG/ML 1 ML CARP\\VIAL IV PRN ×4 (03:02→11:00)
[2017-04-06] MEDS: D5W AND 1/2NSS + 20MEQ KCL 1,000 ML IV SCH ×2 (04:26→14:27)
[2017-04-06] MEDS: CIPROFLOXACIN / D5W 400 MG in PREMIXED IN D5W 200 ML IV SCH ×2 (04:26→16:46)
[2017-04-06] MEDS: METRONIDAZOLE / NSS 500 MG in PREMIXED NSS 100 ML IV SCH ×2 (04:26→12:05)
[2017-04-06] MEDS: METHYLPREDNISOLONE IV 60 MG in SYRINGE 0 ML IV SCH ×2 (06:03)
[2017-04-06 07:57] VITALS: BP 108/66; PULSE 47; TEMP 36.6; O2SAT 98
[2017-04-06] MEDS: FAMOTIDINE IV INJ 20 MG in DEXTROSE 5% 100ML 100 ML IV SCH (08:16)
--- NOTE | 2017-04-06 09:14 | Gastroenterology Progress Note ---
Progress Note Date of Service: Apr 06, 2017 Subjective Pt evaluation today including: conversation w/ patient, physical exam, lab review, review of studies, review of inpatient medication list Patient reports stable abdominal pain but states he feels "better" today. He rates his RLQ abdominal pain as 7/10 at present but just received a dose of Morphine IV. Requests dietary advancement. Solu-Medrol dose reduced to 60 mg IV BID. No nausea or vomiting. No diarrhea or rectal bleeding. Review of Systems Constitutional: No fever, No chills Respiratory: No problem reported Cardiac: No problem reported Abdomen: + see HPI Psych: No problem reported Medications Current Inpatient Medications Medications (Trade) Dose Ordered Sig/Mayda Route Start Time Stop Time Status Last Admin Dose Admin Acetaminophen (Tylenol Tab) 650 mg Q4H PRN PO 04/04/17 04:30 05/04/17 04:29 Al Hydrox/Mg Hydrox/Simethicone (Maalox Max Susp) 15 ml Q4H PRN PO 04/04/17 04:30 05/04/17 04:29 Magnesium Hydroxide (Milk Of Magnesia Susp) 30 ml Q6H PRN PO 04/04/17 04:30 05/04/17 04:29 Polyethylene (Miralax Powder Packet) 17 gm DAILY PRN PO 04/04/17 04:30 05/04/17 04:29 Zolpidem Tartrate (Ambien Tab) 5 mg HSZ PRN PO 04/04/17 04:30 05/04/17 04:29 Ondansetron HCl (Zofran Inj) 4 mg Q6H PRN IV 04/04/17 04:30 05/04/17 04:29 Potassium Chloride/Dextrose/ Sod Cl 1,000 ml @ 125 mls/hr Q8H IV 04/04/17 06:00 05/04/17 05:59 04/06/17 04:26 125 MLS/HR Famotidine 20 mg/ Dextrose 102 ml @ 200 mls/hr Q12H IV 04/04/17 09:00 05/04/17 08:59 04/06/17 08:16 200 MLS/HR Metronidazole 500 mg/Prmx 100 ml @ 100 mls/hr Q8H IV 04/04/17 04:30 04/14/17 04:29 04/06/17 04:26 100 MLS/HR Ciprofloxacin/ Dextrose 400 mg/ Prmx 200 ml @ 100 mls/hr Q12H IV 04/04/17 05:00 04/14/17 04:59 04/06/17 04:26 100 MLS/HR Morphine Sulfate (MoRPHine SULFATE INJ) 3 mg Q2H PRN IV 04/04/17 04:30 04/18/17 04:29 04/06/17 08:16 3 MG Ondansetron HCl (Zofran Odt) 4 mg Q4H PRN PO 04/04/17 04:45 05/04/17 04:44 Methylprednisolone Sodium Succinate 60 mg/Syringe 0.96 ml @ 1.5 mls/min Q12H IV 04/06/17 18:00 05/04/17 11:59 UNV Objective Vital Signs Date Time Temp Pulse Resp B/P (MAP) Pulse Ox O2 Delivery O2 Flow Rate FiO2 04/06/17 07:57 36.6 47 16 108/66 (80) 98 04/06/17 00:00 Room Air 04/05/17 22:17 36.7 53 18 116/71 (86) 96 Room Air 04/05/17 19:30 Room Air 04/05/17 16:00 Room Air 04/05/17 14:32 36.8 51 20 118/71 (87) 97 Room Air 04/05/17 10:54 97 Room Air Physical Exam General Appearance: WD/WN, no apparent distress Eyes: EOMI Respiratory/Chest: lungs clear, normal breath sounds, no respiratory distress Cardiovascular: regular rate, rhythm, no gallop, no murmur Abdomen: normal bowel sounds, soft, + tenderness (RLQ) Extremities: no pedal edema Neurologic/Psych: alert, normal mood/affect, oriented x 3 Laboratory Results Last 24 Hours Test 04/06/17 09:06 Assessment and Plan Patient is a 31 year-old male with a long-standing history of ileostenosing Crohn's disease who remains medically noncompliant and self discontinued Remicade therapy admitted with PSBO, RLQ pain consistent with Crohn's flare off maintenance therapy. 1. Advance diet to full liquids for lunch. 2. Agree with dose reduction of Solu-Medrol to 60 mg IV BID. 3. Continue supportive therapy. Agree with JAKE Mcdonald as above Abd: Soft, Tender RLQ, ND On Discharge Prednisone Taper starting at 40mg per day to decrease by 5mg per week for total 8 week taper. Will schedule patient with Colorectal surgeon for further evaluation and recommendations. Followup in our office for restart of biologic therapy
[2017-04-06 09:59] LABS: BUN/CREATININE RATIO 9.6 (10-20); CALCIUM 8.5 mg/dl (8.5-10.1); CREATININE 0.83 mg/dl (0.60-1.40); MAGNESIUM 2.1 mg/dl (1.8-2.4); POTASSIUM 3.8 mmol/L (3.5-5.1)
[2017-04-06] MEDS ORDERED: TRAMADOL HCL 50 MG TAB PO PRN ×2 (14:00→16:00)
[2017-04-06] MEDS ORDERED: TRAM-10 PO ×3 (14:11→17:29)
[2017-04-06] MEDS ORDERED: METR500T PO ×2 (14:11→14:16)
[2017-04-06] MEDS ORDERED: CPR500 PO ×2 (14:11→14:16)
[2017-04-06] MEDS ORDERED: PRED-301 PO ×2 (14:11→14:16)
--- NOTE | 2017-04-06 14:30 | Discharge Instructions ---
Discharge Instructions Date of Service Apr 06, 2017. Admission Reason for Admission: Crohn's Colitis Discharge Discharge Diagnosis / Problem: Crohns Colitis Discharge Goals Goal(s): Decrease discomfort, Improve function, Increase independence, Improve disease control Activity Recommendations Activity Limitations: per Instructions/Follow-up section Lifting Limitations: gradually increase as tolerated Exercise/Sports Limitations: rest today, gradually increase as tolerated May Resume Sexual Activity: when tolerated Shower/Bathe: no limitations Driving or Machine Use: DO NOT DRIVE WHILE TAKING TRAMADOL . Instructions / Follow-Up Instructions / Follow-Up You were admitted to [facility] with acute Crohns disease flare up and diagnosed with the same. During your stay here you were treated with intravenous steroids and antibiotics , your diet was limited and advanced as you tolerated, and intravenous fluids were administered. Your pain was controlled with IV medication. Imaging studies which were completed include CT abdomen, and were abnormal showing acute Crohns flare. Medications: You have been given a prescription for ciprofloxacin (Cipro) 500 mg twice daily x 5 days AND metronidazole (Flagyl) 500 mg three times daily x 5 days - Finish this course on 04/11/17. Continue taking prednisone as follows: Take 40 mg (8 tabs) daily x 1 week starting on 04/07 Take 35 mg (7 tabs) daily for next week starting 04/14 Take 30 mg (6 tabs) daily for next week starting 04/21 Take 25 mg (5 tabs) daily for next week starting 04/28 Take 20 mg (4 tabs) daily for next week starting 05/05 Take 15 mg (3 tabs) daily for next week starting 05/12 Take 10 mg (2 tabs) daily for next week starting 05/19 Take 5 mg (1 tabs) daily for next week starting 05/26. THEN FINISH on For Pain Continue to use tramadol 50 mg every 4 hours as needed for pain. Do NOT drive while taking this. You have been given a 7 day supply. If your pain worsens, you have increased nausea or vomiting, or you develop changes in bowel habits, develop fever, chills or sweats, come back to the emergency department. DO NOT DRINK ALCOHOL!!! Do not drink this while taking flagyl as you will become extremely nauseous with it!! Appointments: Follow up with Gastroenterology within 1-[address] Baxter Current Hospital Diet Patient's current hospital diet: Full Liquid Diet, advance as tolerated Discharge Diet Recommended Diet: Full Liquid Diet (Advance as tolerated. Do NOT DRINK ALCOHOL) Pending Studies Studies pending at discharge: no Medical Emergencies . Who to Call and When: Medical Emergencies: If at any time you feel your situation is an emergency, please call 911 immediately. . Non-Emergent Contact Non-Emergency issues call your: Primary Care Provider, [facility] Call Non-Emergent contact if: you have a fever, temperature is above 100.5, your pain is concerning you, you have any medication questions other concerns with your health. Call 911 or go directly to the Emergency Department if you experience any of the following: Chest pain, chest tightness, shortness of breath, abdominal pain , lightheadedness, dizziness, gastrointestinal bleeding, or have any other concerns regarding your health. . Past History Medical & Surgical History: (1) Crohn's colitis . "Provider Documentation" section prepared by Maria Ines West. Attending Attestation: Pt seen/examined, and discharge care plan d/w MELISSA West. I agree with her discharge instructions as outlined. Naresh Santana MD . VTE Core Measure Inpt VTE Proph given/why not?: Dana Kaur, SCD's
--- NOTE | 2017-04-06 14:34 | Discharge Summary ---
Discharge Summary Date of Service Apr 06, 2017. (Aleshia West PA-C) Discharge Summary Admission Date: Apr 04, 2017 at 04:28 Discharge Date: Apr 06, 2017 Discharge Disposition: Home Principal Diagnosis: Acute flare of Crohns disease Immunizations: Have You Had Influenza Vaccine: Unknown History of Tetanus Vaccine?: Unknown History of Pneumococcal: Unknown History of Hepatitis B Vaccine: Unknown Procedures: ABDOMEN 2VIEW W/PA CHEST RTN CLINICAL HISTORY: ABDOMINAL PAIN/GI pain COMPARISON STUDY: No previous studies for comparison. FINDINGS: Lungs are clear. Mild generalized ileus. No evidence of bowel distention. No secondary evidence for free air. IMPRESSION: Generalized ileus. Negative chest. The above report was generated using voice recognition software. It may contain grammatical, syntax or spelling errors. Electronically signed by: Sage Calvo M.D. 04/04/2017 6:21 AM Dictated Date/Time: 04/04/2017 6:20 AM The status of this report is Signed. ABD/PELVIS NO IV OR ORAL CONT CT DOSE: 985.59 mGy.cm HISTORY: Pain abd pain TECHNIQUE: Multiaxial CT images of the abdomen and pelvis were performed without contrast. A dose lowering technique was utilized adhering to the principles of ALARA. COMPARISON STUDY: 04/29/2013 FINDINGS: Lung bases are clear. Liver spleen and pancreas are unremarkable. Kidneys negative for hydronephrosis or calcification. Normal appendix. Moderate wall thickening of the distal and terminal ileum. Mild proximal small bowel distention. Findings suggest inflammatory bowel change and/or Crohn's disease. The colonic pattern is nonobstructive. Trace free fluid within the pelvic cul-de-sac. IMPRESSION: 1. Findings suggesting moderate wall thickening of the distal and terminal ileum with more proximal small bowel distention. 2. The appearance suggests active inflammatory bowel change and/or Crohn's disease. 3. No evidence for abscess or collection within limitations of an unenhanced scan. 4. Small amount of reactive free fluid within the pelvic cul-de-sac. The above report was generated using voice recognition software. It may contain grammatical, syntax or spelling errors. Electronically signed by: Sage Calvo M.D. 04/04/2017 7:16 AM Dictated Date/Time: 04/04/2017 7:13 AM The status of this report is Signed. Consultations: Gastroenterology (Aleshia West PA-C) Medication Reconciliation New Medications: Ciprofloxacin (Ciprofloxacin HCl) 500 Mg Tab 500 MG PO BID for 5 Days, #10 TAB Metronidazole (Flagyl) 500 Mg Tab 500 MG PO TID for 5 Days, #15 TAB Prednisone (Prednisone) 5 Mg Tab 5 MG PO UD for 56 Days, #252 TAB Tramadol (Ultram) 50 Mg Tab 50 MG PO Q4H PRN for Pain for 7 Days, #28 TAB Discharge Exam The patient was seen and examined this morning. Pt reports doing better today compared to yesterday. His diet has been advanced as he tolerated clears without difficulty, had full liquids for lunch and tolerated fine. Plan for trial of low fiber for dinner. Pt is adamant about discharge if at all possible. He denies any fevers, chills or sweats. Review of Systems: Constitutional: No fever, No chills, No sweats Eyes: No discharge, No diplopia ENT: No tinnitus, No trouble swallowing Respiratory: No shortness of breath, No dyspnea on exertion Cardiovascular: No chest pain, No edema Abdomen: + pain (mild RUQ ), No nausea, No vomiting, No diarrhea, No constipation Musculoskeletal: No joint pain, No swelling Genitourinary - Male: No dysuria Neurologic: No memory loss, No numbness/tingling Endocrine: No fatigue Hematologic / Lymphatic: No clotting problems Integumentary: No rash, No itch Physical Exam: General Appearance: WD/WN, no apparent distress, + obese Eyes: PERRL, EOMI ENT: hearing grossly normal, pharynx normal Neck: supple, no JVD Respiratory/Chest: lungs clear, normal breath sounds, no respiratory distress, no accessory muscle use Cardiovascular: regular rate, rhythm, no murmur, normal peripheral pulses Abdomen / GI: normal bowel sounds, non tender, soft Extremities: normal inspection, no calf tenderness, no pedal edema Neurologic/Psychiatric: alert, normal reflexes, oriented x 3 Skin: normal color, warm/dry (Aleshia West PA-C) Hospital Course History of Present Illness Source: patient 31M with a PMHX of Crohn's presents with a one day history of abdominal pain. 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 Pt does not have a PCP because he doesn't have insurance. He has not had diarrhea, just one loose stools today. Pt denies blood in the stool. Pt's last Crohn's flare was several years ago. Pt has not been taking his Remicade because he doesn't have insurance. Physical Exam Vital Signs Date Time Temp Pulse Resp B/P (MAP) Pulse Ox O2 Delivery O2 Flow Rate FiO2 04/04/17 03:53 113 20 130/68 96 Room Air 04/04/17 02:00 103 20 102/77 100 Room Air 04/04/17 01:00 103 20 154/84 100 Room Air 04/03/17 23:59 90 16 133/72 100 Room Air 04/03/17 22:59 37.0 108 20 143/90 97 General Appearance: WD/WN, no apparent distress Head: normocephalic Neck: supple, no JVD Respiratory/Chest: chest non-tender, lungs clear, normal breath sounds, no respiratory distress, no accessory muscle use Cardiovascular: regular rate, rhythm, no edema, no gallop, no JVD, no murmur, normal peripheral pulses Abdomen/GI: normal bowel sounds, soft, + pertinent finding (warm abdomen, rebound in the RLQ, tender to deep palpation in the RLQ) Back: no muscle spasm Extremities/Musculoskelatal: normal inspection, no calf tenderness, normal capillary refill, no pedal edema, normal range of motion Neurologic/Psych: no motor/sensory deficits, alert, normal reflexes, oriented x 3 Skin: no rash Hospital Course: 31 yo M with a PMHX of Crohn's CT findings are consistent with a crohn's flare. GI consulted (Dr. Baxter). Abdominal Pain 2/2 Crohn's Flare - IVF- trial of clears and full liquids tolerated without difficulty. Advance as tolerated - Discussed with Dr. Baxter and he is in agreement with 8 week prednisone taper, starting at 40 mg and decreasing by 5 mg each week. Scheduled to finish on . - Continue cipro 500 BID x 5 d and metronidazole 500 TID x 5 days to complete a 1 week course. - Cipro available on [facility] 4$ list. flagyl will cost approximately $ 20.00. - Last BM 3 days ago, +flatus, no n/v/d/c. His abdominal pain has improved. - Afebrile, no leukocytosis and pain is improving. - Previous treatment of Remicade worked well but has not been on this for 1-2 years secondary to insurance. He had been on the medication for a total of 1 year and did not have flares on it. - Follow up with GI within 1 month. - Analgesia with tramadol 50 mg Q6H : given a one week supply at time of discharge DVT Proph: SCDs, ambulatory CODE STATUS: FULL CODE Disposition: From home, discharge home today. Total Time Spent: Greater than 30 minutes This includes examination of the patient, discharge planning, medication reconciliation, and communication with other providers. (Aleshia West PA-C) Attending Attestation: Pt seen/examined, chart reviewed, care plan d/w MELISSA West. I agree w/ the jeter components of her documentation. 31yo male with Crohn's disease who presented with Crohn's exacerbation. Seen by [facility] GI and managed with IVF, IV steroids, and antibiotics. All GI symptoms gradually improved. He will complete a prolonged taper of prednisone and a short course of cipro/ flagyl. A biological agent will be resumed in the future once he re-establishes care in the [facility] GI clinic. Exam: gen - nad mouth - no ulcers heart - RRR lungs - CTA b/l abd - soft, NT, ND, BS+, no HSM ext - no edema skin - no rashes or lesions Lastly, the patient had an occasional elevated blood glucose level and I would recommend outpatient fasting glucose and hemoglobin a1c once off steroids. Naresh Santana MD Total Time Spent: Less than 30 minutes (Naresh Santana MD) Discharge Instructions Please refer to the electronic Patient Visit Report (Discharge Instructions) for additional information. (Aleshia West PA-C) Follow-Up Follow up with GI within 1 month. Pt refused follow up with PCP secondary to no insurance. (Aleshia West PA-C) [facility]astroenter[facility] - Nicky Car PA-C - WednesdayApril 13 at 2:20 pm (Naresh Santana MD) Additional Copies To Bo Baxter D.O.; Nicky Car, PA
[2017-04-06 15:32] VITALS: BP 131/75; PULSE 54; TEMP 36.5; O2SAT 98
[2017-04-06] MEDS ORDERED: TRAMADOL HCL 50 MG TAB PO STA (15:48)
[2017-04-06 17:04] VITALS: BP 131/75; PULSE 54; TEMP 36.5; O2SAT 98
[2017-04-06] MEDS ORDERED: METHYLPREDNISOLONE IV 60 MG in SYRINGE 0 ML IV SCH (18:00)
== END 2017-04-06 18:55 | disposition home or self-care (01) | DRG 387 ==
LOC: C.EDB 22:56 → C.MS2W 04-04 04:28 → ENRESERV 04-04 04:51
PROVIDERS: ADMIT Family Medicine; ATTEND Internal Medicine
DX: K50.90 Crohn's disease, unspecified, without complications (principal); Z80.9 Family history of malignant neoplasm, unspecified; Z82.49 Family history of ischemic heart disease and other diseases of the circulatory system

== ENCOUNTER → 2017-05-31 | Day surgery (SDC) | payer OTHER ==
[2017-05-25 14:01] VITALS: BMI 35.0
[~2017-05-31] VITALS: Ht 182.9 cm; Wt 118.2 kg
[~2017-05-31] MED LIST: AMPH20TA2 PO; ATROPINE SULFATE 0.1 MG/ML 5ML SYR IV PRN; EpHEDrine SULFATE INJ 50 MG/ML AMP IV PRN; MIDAZOLAM HCL 1 MG/ML 2ML VIAL ONE; MULT-506 PO; PROPOFOL IV EMULSION 10 MG/ML 20 ML VIAL IV ONE; SODIUM CHLORIDE 0.9% 500ML 500 ML IV ONE; VITBC SL
[2017-05-31 08:04] VITALS: Ht 182.9 cm; Wt 118.2 kg
--- NOTE | 2017-05-31 08:39 | Endo History and Physical ---
History & Physical Date of Service: May 31, 2017. Chief Complaint: hx crohns Referring Physician: Dr. Barrett History of Present Illness 31 yo CM who presents for colonoscopy secondary to Crohn's Disease. Past Medical History Gastrointestinal Disorder Past Surgical History Hx Cardiac Surgery: No Hx Internal Defibrillator: No Hx Pacemaker: No Hx Abdominal Surgery: No Hx of Implantable Prosthesis: No Hx Post-Op Nausea and Vomiting: No Hx Cancer Surgery: No Hx Thoracic Surgery: No Hx Orthopedic: No Hx Urinary Tract Surgery: No Family History IBD Social History Smoking Status: Never Smoker Hx Substance Use: No Hx Alcohol Use: No Allergies Coded Allergies: NSAIDs (Verified Adverse Reaction, Severe, CHROHNS DISEASE, 05/31/17) Current Medications Reported Home Medications Medications Dose Route/Sig Max Daily Dose Days Date Category Vitamin B Complex 1 Tab Tab 1 Ml SL DAILY 05/25/17 Reported Multivitamin (Multivitamins) Tab 1 Tab PO DAILY 05/25/17 Reported Adderall 20MG (Amphetamine-Dextroamphetamine 20MG) 1 Tab Tab 20 Mg PO BID PRN 05/25/17 Reported Vital Signs Weight (Kilograms): 118.18 Height (Feet): 6 Height (Inches): 0 Date Time Temp Pulse Resp B/P (MAP) Pulse Ox O2 Delivery O2 Flow Rate FiO2 05/31/17 08:18 37 59 16 139/61 (87) 99 Room Air Physical Exam General Appearance: WD/WN, no apparent distress Respiratory/Chest: Auscultation: breath sounds normal Cardiovascular: Heart Auscultation: RRR Abdomen: Bowel Sounds: normal Inspection & Palpation: soft, non-distended, no tenderness, guarding & rebound Assessment and Plan Assessment: 31 yo CM who presents for colonoscopy secondary to Crohn's Disease. Plan: Proceed with colonoscopy.
--- NOTE | 2017-05-31 09:09 | GI REPORT ---
Procedure Date: 05/31/2017 8:13 AM Procedure: Colonoscopy Indications: Disease activity assessment of Crohn's disease of the small bowel Medicines: Monitored Anesthesia Care Complications: No immediate complications. Estimated Blood Loss: Estimated blood loss: none. Procedure: Pre-Anesthesia Assessment: - Prior to the procedure, a History and Physical was performed, and patient medications and allergies were reviewed. The patient's tolerance of previous anesthesia was also reviewed. The risks and benefits of the procedure and the sedation options and risks were discussed with the patient. All questions were answered, and informed consent was obtained. Prior Anticoagulants: The patient has taken no previous anticoagulant or antiplatelet agents. ASA Grade Assessment: II - A patient with mild systemic disease. After reviewing the risks and benefits, the patient was deemed in satisfactory condition to undergo the procedure. After I obtained informed consent, the scope was passed under direct vision. Throughout the procedure, the patient's blood pressure, pulse, and oxygen saturations were monitored continuously. The scope was introduced through the anus and advanced to the terminal ileum. The colonoscopy was performed without difficulty. The patient tolerated the procedure well. The quality of the bowel preparation was good. The terminal ileum, ileocecal valve, appendiceal orifice, and rectum were photographed. Findings: The perianal and digital rectal examinations were normal. The terminal ileum contained a benign-appearing, intrinsic moderate stenosis measuring 5 cm (in length) x 1.1 cm (inner diameter) that was traversed. Biopsies were taken with a cold forceps for histology. Localized inflammation, severe in severity and characterized by erythema, loss of vascularity and confluent ulcerations was found in the terminal ileum. Biopsies were taken with a cold forceps for histology. The entire examined colon appeared normal. Impression: - Stricture in the terminal ileum. Biopsied. - Crohn's disease with ileitis. Biopsied. - The entire examined colon is normal. Recommendation: - Resume previous diet. - Continue present medications. - Await pathology results. - Repeat colonoscopy for surveillance based on pathology results. - Return to GI office as previously scheduled. Bo Baxter DO 05/31/2017 9:08:53 AM This report has been signed electronically. Note Initiated On: 05/31/2017 8:13 AM I attest to the content of the Intraoperative Record and orders documented therein, exceptions below
--- NOTE | 2017-05-31 09:11 | Discharge Instructions ---
Endoscopy Patient Instructions Date / Procedure(s) Performed May 31, 2017. Colonoscopy Allergy Information Coded Allergies: NSAIDs (Verified Adverse Reaction, Severe, CHROHNS DISEASE, 05/31/17) Discharge Date / Findings May 31, 2017. Crohn's Ileitis with stricture of ileocecal valve s/p biopsies Medication Instructions OK to resume all medications today as prescribed Reported Home Medications Medications Dose Route/Sig Max Daily Dose Days Date Category Vitamin B Complex 1 Tab Tab 1 Ml SL DAILY 05/25/17 Reported Multivitamin (Multivitamins) Tab 1 Tab PO DAILY 05/25/17 Reported Adderall 20MG (Amphetamine-Dextroamphetamine 20MG) 1 Tab Tab 20 Mg PO BID PRN 05/25/17 Reported Provider Instructions Activity Restrictions - No exercising or heavy lifting for 24 hours. - Do not drink alcohol the day of the procedure. - Do not drive a car or operate machinery until the day after the procedure. - Do not make any important decisions or sign important papers in 24 hours after the procedure. Following Day: - Return to full activity which may include returning to work/school. Diet Start your diet with liquids and light foods (jello, soup, juice, toast). Then eat your usual diet if not nauseated. Treatment For Common After Affects For mild abdominal pain, bloating, or excessive gas: - Rest - Eat lightly - Lie on right side Follow-Up Information Follow-up with Dr. Barrett as scheduled Anesthesia Information What You Should Know You have had a procedure that required some medicine to reduce anxiety and discomfort. This treatment is called moderate sedation. After receiving the treatment, you may be sleepy, but you will be able to breathe on your own. The effects of the treatment may last for several hours. Follow these instructions along with Activity/Diet recommendations noted above: * Do NOT do anything where dizziness or clumsiness would be dangerous. * Rest quietly at home today, then you can be up and about tomorrow. * Have a responsible person stay with you the rest of today. * You may have had an I.V. today. If so, you may take the dressing off later today. Recommendations Call your doctor if: * Trouble breathing * Continuous vomiting for more than 24 hours * Temperature above 101 degrees * Severe abdominal pain or bloating * Pain not relieved by pain medicine ordered * There is increased drainage or redness from any incision * A large amount of rectal bleeding greater than 2-3 tablespoons. (If you had a polyp/s removed or have hemorrhoids, a small amount of blood - from the rectum is to be expected.) * You have any unanswered questions or concerns. IN THE EVENT OF A SERIOUS EMERGENCY, GO TO THE NEAREST EMERGENCY ROOM Your discharge instructions were prepared by provider Bo Baxter. Patient Instructions Signature Page Amrit Price Patient (or Guardian) Signature/Date: I have read and understand the instructions given to me by my caregivers. Caregiver/RN/Doctor Signature/Date: The above-named patient and/or guardian has received patient instructions on this date. + Original Patient Signature Page (only) stays with chart. Please make copy for patient.
[2017-05-31 09:40] VITALS: BP 142/81; PULSE 68; O2SAT 97
--- NOTE | 2017-05-31 09:41 | Anesthesiology Progress Note ---
Anesthesia Post Op Note Date & Time May 31, 2017 at 09:40 Vital Signs Pain Intensity: 0 Vital Signs Past 12 Hours Date Time Temp Pulse Resp B/P (MAP) Pulse Ox O2 Delivery O2 Flow Rate FiO2 05/31/17 09:22 68 20 111/79 (90) 95 Room Air 05/31/17 09:07 86 20 132/92 (105) 99 Room Air 05/31/17 08:18 37 59 16 139/61 (87) 99 Room Air Notes Mental Status: alert / awake / arousable, participated in evaluation Pt Amnestic to Procedure: Yes Nausea / Vomiting: adequately controlled Pain: adequately controlled Airway Patency, RR, SpO2: stable & adequate BP & HR: stable & adequate Hydration State: stable & adequate Anesthetic Complications: no major complications apparent
== END | disposition home or self-care (01) ==
LOC: C.GI 07:45
PROVIDERS: ATTEND Internal Medicine
DX: K50.018 Crohn's disease of small intestine with other complication (principal); K56.690 Other partial intestinal obstruction; Z83.79 Family history of other diseases of the digestive system; Z79.899 Other long term (current) drug therapy

== ENCOUNTER 2022-09-23 18:44 | Inpatient (IN) ==
[2022-09-23 19:47] LABS: Appearance Urine Clear (Clear); Bilirubin Urine Negative (Negative); Blood Urine Negative (Negative); Color Urine Yellow; Glucose Urine UA Negative (Negative); Ketones Urine Negative (Negative); Leukocyte Esterase Urine Negative (Negative); Nitrite Urine Negative (Negative); Protein Urine Negative (Negative); Specific Gravity Urine 1.021 (1.000-1.030); Urobilinogen Urine Negative (Negative)
[2022-09-23 19:49] LABS: Basophils # (auto) 0.02 K/uL (0-0.2); Basophils % (auto) 0.2 %; Eosinophils # (auto) 0.02 K/uL (0-0.50); Eosinophils % (auto) 0.2 %; Hematocrit (blood only) 40.1 % (42.0-52.0); Hemoglobin 13.6 g/dl (14.0-18.0); Immature Granulocytes # (auto) 0.04 K/uL (0.01-0.20); Immature Granulocytes % (auto) 0.4 %; Lymphocytes # (auto) 0.89 K/uL (1.2-3.4); Lymphocytes % (auto) 9.6 %; Mean Corpuscular Hemoglobin 28.5 pg (25.0-34.0); Mean Corpuscular Hgb Conc 33.9 g/dL (32.0-36.0); Mean Corpuscular Volume 84.1 fL (80.0-100.0); Mean Platelet Volume 9.2 fL (9.4-12.4); Monocytes # (auto) 0.34 K/uL (0.11-0.59); Monocytes % (auto) 3.7 %; Neutrophils # (auto) 7.94 K/uL (1.40-6.50); Neutrophils % (auto) 85.9 %; Platelet Count 331 K/uL (130-400); RDW Coefficient of Variation 13.3 % (11.5-14.5); Red Blood Count 4.77 M/uL (4.70-6.10); White Blood Count 9.25 K/ul (4.8-10.8)
[2022-09-23 20:05] LABS: Albumin Globulin Ratio 1.5 (0.9-2); Albumin Level 4.4 gm/dl (3.4-5.0); BUN Creatinine Ratio 22.1 (10-20); Bilirubin,Total 0.6 mg/dl (0.2-1.0); Calcium 9.6 mg/dl (8.5-10.1); Creatinine Clr Calc Pharmacy 165.1 ml/min; Est GFR (African American) 129.3 ml/min; Est GFR (Non-African American) 111.6 ml/min; Potassium 4.5 mmol/L (3.5-5.1); Total Protein 7.4 gm/dl (6.0-8.3)
[2022-09-23] MEDS ORDERED: SODIUM CHLORIDE 0.9% 1000ML 1,000 ML IV ONE (20:28)
--- NOTE | 2022-09-23 20:32 | Emergency Department Note ---
Impression & Plan Small bowel obstruction, Abdominal pain, Crohn's disease ED Provider Note NAME: AMRIT DUDLEY AGE: 37 SEX: M : 1985 ARRIVES VIA: Walk-In INFORMANT: Patient ED PROVIDER(S): Lee Ruiz DO CHIEF COMPLAINT: Abdominal pain HPI: Patient is a 37-year-old male who presents to the ER for abdominal pain. He notes he has a history of Crohn's. He does have nausea but no vomiting. He was here about 2 weeks ago and was evaluated placed on steroids and discharged. He never followed up with GI. He returns as his pain returned and it is periumbilical. Associate with nausea and vomiting. He denies any dysuria, urgency, or frequency. Feels like his Crohn's flares. Denies any fevers. No other exacerbating or remitting factors. PAST MEDICAL HISTORY:See Below PAST SURGICAL HISTORY:See Below FAMILY HISTORY:See Below SOCIAL HISTORY:See Below HOME MEDICATIONS:See Below ALLERGIES:See Below VITALS:See Below PHYSICAL EXAMINATION: GENERAL: Sitting up in bed, alert, mild distress, non-toxic EYE EXAM: normal conjunctiva. OROPHARYNX: no exudate, no erythema, lips, buccal mucosa, and tongue normal and mucous membranes are moist NECK: supple, no nuchal rigidity, no adenopathy, non-tender LUNGS: Clear to auscultation. Normal chest wall mechanics HEART: no murmurs, S1 normal and S2 normal ABDOMEN: abdomen soft, non-tender, normo-active bowel sounds, no masses, no rebound or guarding. UPPER EXTREMITIES: upper extremities are grossly normal. LOWER EXTREMITIES: No pitting edema. NEURO EXAM: Normal sensorium, cranial nerves II-XII grossly intact, normal speech, no gross weakness of arms, no gross weakness of legs. MEDICAL DECISION MAKING: Patient is a 37-year-old male without past medical history of Crohn's ileitis that presents the ER for abdominal pain. IV was established blood work was obtained. Labs show no significant leukocytosis or anemia. BMP with LFTs bilirubin and lipase is unremarkable. UA was clean. COVID-negative. CT shows no obstruction. Discussed with Lisandro from general surgery who evaluated the patient at bedside. Recommend admission to the hospitalist. No vomiting. He was given multiple doses of Zofran, morphine and fluids. He was updated bedside. Admitted for further work-up. Discussed with Pt concerning signs and symptoms to watch out for. Pt was instructed to follow up with their PCP and discussed with the patient their option to return to the ED at anytime for persistent or worsening symptoms. The appropriate anticipatory guidance and out- patient management, including indications for return to the emergency department, were explained at length to the patient and understood. Triage Nursing notes reviewed. Limited review of prior medical records performed Vital Signs: reviewed and remarkable for HTN Differential diagnosis: Differential diagnoses includes but is not limited to gastritis, peptic ulcer disease, GERD, gallbladder disease, pancreatitis, small bowel obstruction, appendicitis, diverticulitis, hernia, urinary tract infection, torsion, perforation, trauma, infectious. ER treatment provided: See below Diagnostics interpreted by me include EKG and cardiac monitoring as listed below: -Cardiac Monitoring: An order was placed for continuous cardiac monitoring. The monitor shows a rate of 70 with sinus rhythm. -ECG: none -Laboratory studies:Interpreted by me as stated above in MDM and shown below. Imaging studies: Xrays: As interpreted by me:none CTs show: CT shows a small bowel obstruction per radiology Consultation(s): Discussed with general surgery and the hospitalist as described above Procedures:none Critical Care: None Past Med/Surg History Medical History Attention deficit disorder (ADD) Crohns disease GERD (gastroesophageal reflux disease) History of anemia Obese Surgical History History of colonoscopy (06/2018) History of esophagogastroduodenoscopy (EGD) History of tonsillectomy [place] teeth removed Family History Grandfather (Paternal) Heart disease Mother Irritable bowel Grandfather (Maternal) Scleroderma Other No family history of adverse response to anesthesia Denies family history of Colon cancer Ovarian cancer Prostate cancer Myocardial infarction Breast cancer Social History Smoking Status: Never smoker Tobacco Type: Cigarettes and E-cigarettes / Vaping packs per day: 0.5; Cigarettes Per Day: 3 CIG DAILY; Second Hand Exposure: No; Hx Alcohol Use: Yes Alcohol type: beer Hx Substance Use: No Preferred Language: Panamanian Communication Ability: Effective Visual Impairment: No Limitations Hearing Ability: Normal Procedure Rn Required: No Beliefs That Will Affect Care: None marital status: Single Current Living Situation: Other Current Living Situation Comment: Lives with 1 roommate current occupational status: employed current occupation: Delivery Feels Safe at Home: Yes Childhood Exposure to Second-Hand Smoke: No Dental Care, Regularly: Yes Physical Activity Frequency: 3-4 Times per Week Seatbelt Use: always Sunscreen Use: No Assistive Devices: None Allergies Allergies Allergy/AdvReac Type Severity Reaction Status Date / Time NSAIDS (Non-Steroidal AdvReac Severe CROHNS Verified 09/23/22 21:39 Anti-Inflamma DISEASE--INSTRUCTED TO AVOID Home Meds Home Medications Medication Instructions Recorded Confirmed No Known Home Medications 09/23/22 09/23/22 Results & Data (ED) Vital Signs Vital Signs - 24 hr 09/23/22 18:55 09/23/22 19:53 09/23/22 21:01 Temperature 36.4 C L Temperature Source Temporal Artery Scan Pulse Rate 78 Pulse Rate [Finger] 74 71 Pulse Rhythm [Finger] Regular Pulse Strength [Finger] Normal Respiratory Rate 16 18 18 Respiratory Effort / Characteristics Non-Labored Spontaneous Respiratory Depth Normal Respiratory Pattern Regular Blood Pressure 153/101 H Blood Pressure [Left Arm] 157/106 H 159/99 H Blood Pressure Mean 118 Blood Pressure Mean [Left Arm] 123 119 Blood Pressure Position [Left Arm] Lying Pulse Oximetry 97 98 98 Oxygen Delivery Method Room Air Room Air Room Air Sepsis New/Unexplained Change in Mental Status No Sepsis Action Taken by Nursing No Action Required Laboratory Data 09/23/22 19:22 09/23/22 19:22 Lab Results 09/23/22 09/23/22 09/23/22 Range/Units 19:22 19:22 19:22 WBC 9.25 (4.8-10.8) K/ul RBC 4.77 (4.70-6.10) M/uL Hgb 13.6 L (14.0-18.0) g/dl Hct 40.1 L (42.0-52.0) % MCV 84.1 (80.0-100.0) fL MCH 28.5 (25.0-34.0) pg MCHC 33.9 (32.0-36.0) g/dL RDW Std Deviation 41.0 (36.4-46.3) fL RDW Coeff of Roopa 13.3 (11.5-14.5) % Plt Count 331 (130-400) K/uL MPV 9.2 L (9.4-12.4) fL Immature Gran % (Auto) 0.4 % Neut % (Auto) 85.9 % Lymph % (Auto) 9.6 % [place] % (Auto) 3.7 % Eos % (Auto) 0.2 % Baso % (Auto) 0.2 % Neut # (Auto) 7.94 H (1.40-6.50) K/uL Lymph # (Auto) 0.89 L (1.2-3.4) K/uL [place] # (Auto) 0.34 (0.11-0.59) K/uL Eos # (Auto) 0.02 (0-0.50) K/uL Baso # (Auto) 0.02 (0-0.2) K/uL Immature Gran # (Auto) 0.04 (0.01-0.20) K/uL Sodium 136 (136-145) mmol/L Potassium 4.5 (3.5-5.1) mmol/L Chloride 106 (98-107) mmol/L Carbon Dioxide 22 (21-32) mmol/L Anion Gap 8 (3-11) BUN 19 (6-23) mg/dl Creatinine 0.86 (0.6-1.4) mg/dl Est Cr Clr Drug Dosing 165.1 ml/min Est GFR ( Amer) 129.3 ml/min Est GFR (Non-Af Amer) 111.6 ml/min BUN/Creatinine Ratio 22.1 H (10-20) Glucose 113 H (70-99(Fasting)) mg/dl Calcium 9.6 (8.5-10.1) mg/dl Total Bilirubin 0.6 (0.2-1.0) mg/dl AST 25 (13-39) U/L ALT 32 (7-52) U/L Alkaline Phosphatase 83 (34-104) U/L Total Protein 7.4 (6.0-8.3) gm/dl Albumin 4.4 (3.4-5.0) gm/dl Globulin 3.0 (2.5-4.0) gm/dl Albumin/Globulin Ratio 1.5 (0.9-2) Lipase 9 L (11-82) U/L Urine Color Yellow Urine Appearance Clear (Clear) Urine pH 6.0 (4.5-7.5) Ur Specific [place] 1.021 (1.000-1.030) Urine Protein Negative (Negative) Urine Glucose (UA) Negative (Negative) Urine Ketones Negative (Negative) Urine Blood Negative (Negative) Urine Nitrite Negative (Negative) Urine Bilirubin Negative (Negative) Urine Urobilinogen Negative (Negative) Ur Leukocyte Esterase Negative (Negative) SARS-CoV-2, RNA, NAAT (NEGATIVE) 09/23/22 Range/Units 21:53 WBC (4.8-10.8) K/ul RBC (4.70-6.10) M/uL Hgb (14.0-18.0) g/dl Hct (42.0-52.0) % MCV (80.0-100.0) fL MCH (25.0-34.0) pg MCHC (32.0-36.0) g/dL RDW Std Deviation (36.4-46.3) fL RDW Coeff of Roopa (11.5-14.5) % Plt Count (130-400) K/uL MPV (9.4-12.4) fL Immature Gran % (Auto) % Neut % (Auto) % Lymph % (Auto) % [place] % (Auto) % Eos % (Auto) % Baso % (Auto) % Neut # (Auto) (1.40-6.50) K/uL Lymph # (Auto) (1.2-3.4) K/uL [place] # (Auto) (0.11-0.59) K/uL Eos # (Auto) (0-0.50) K/uL Baso # (Auto) (0-0.2) K/uL Immature Gran # (Auto) (0.01-0.20) K/uL Sodium (136-145) mmol/L Potassium (3.5-5.1) mmol/L Chloride (98-107) mmol/L Carbon Dioxide (21-32) mmol/L Anion Gap (3-11) BUN (6-23) mg/dl Creatinine (0.6-1.4) mg/dl Est Cr Clr Drug Dosing ml/min Est GFR ( Amer) ml/min Est GFR (Non-Af Amer) ml/min BUN/Creatinine Ratio (10-20) Glucose (70-99(Fasting)) mg/dl Calcium (8.5-10.1) mg/dl Total Bilirubin (0.2-1.0) mg/dl AST (13-39) U/L ALT (7-52) U/L Alkaline Phosphatase (34-104) U/L Total Protein (6.0-8.3) gm/dl Albumin (3.4-5.0) gm/dl Globulin (2.5-4.0) gm/dl Albumin/Globulin Ratio (0.9-2) Lipase (11-82) U/L Urine Color Urine Appearance (Clear) Urine pH (4.5-7.5) Ur Specific [place] (1.000-1.030) Urine Protein (Negative) Urine Glucose (UA) (Negative) Urine Ketones (Negative) Urine Blood (Negative) Urine Nitrite (Negative) Urine Bilirubin (Negative) Urine Urobilinogen (Negative) Ur Leukocyte Esterase (Negative) SARS-CoV-2, RNA, NAAT NEGATIVE (NEGATIVE) Administered Medications Potassium Chloride/Sodium Chloride (Normal Saline W/20 Meq Kcl) 20 meq in 1,000 mls @ 80 mls/hr IV .[id number] [facility]; Protocol Stop: 10/23/22 23:37 Last Admin: 09/23/22 23:52 Dose: 80 mls/hr Documented By: AMANDA Methylprednisolone 40 mg/ (Syringe) 0.64 mls @ 1.5 mls/min IV Q8H [facility] Stop: 10/24/22 00:00 Last Admin: 09/23/22 23:53 Dose: 1.5 mls/min Documented By: AMANDA Piperacillin Sod/Tazobactam (Sod 4.5 gm/ Dextrose) 120 mls @ 240 mls/hr IV NOW ONE; Protocol Stop: 09/24/22 00:14 Last Admin: 09/23/22 23:52 Dose: 240 mls/hr Documented By: AMANDA Morphine Sulfate (Morphine Sulfate 2 Mg/Ml Carp) 2 mg IV Q3H PRN PRN Reason: Moderate Pain (Scale 4, 5, 6) Stop: 10/07/22 23:37 Last Admin: 09/23/22 23:52 Dose: 2 mg Documented By: AMANDA Discontinued Medications Sodium Chloride (Nss 1000ml) 1,000 mls @ 999 mls/hr IV .Q1H1M ONE Stop: 09/23/22 21:28 Last Infusion: 09/23/22 22:06 Dose: 0 mls/hr Documented By: Admin: 09/23/22 21:01 Dose: 999 mls/hr Documented By: MARYANN Ioversol (Optiray 350 100ml) 87 ml IV ONCE ONE Stop: 09/23/22 20:55 Last Admin: 09/23/22 20:55 Dose: 87 ml Documented By: LINCOLN Morphine Sulfate (Morphine Sulfate 4 Mg/Ml 1 Ml Carp\Vial) 4 mg IV NOW STA Stop: 09/23/22 21:20 Last Admin: 09/23/22 21:28 Dose: 4 mg Documented By: SERAFIN Morphine Sulfate (Morphine Sulfate 4 Mg/Ml 1 Ml Carp\Vial) 4 mg IV NOW STA Stop: 09/23/22 21:37 Last Admin: 09/23/22 21:56 Dose: 4 mg Documented By: SERAFIN Ondansetron HCl (Ondansetron Inj 2 Mg/Ml 2 Ml Vial) 4 mg IV NOW STA Stop: 09/23/22 21:37 Last Admin: 09/23/22 21:45 Dose: 4 mg Documented By: SERAFIN Imaging Data Radiologist's Impression: Abdomen/Pelvis CT 09/23/22 20:28 CT SCAN OF THE ABDOMEN AND PELVIS WITH IV CONTRAST CLINICAL HISTORY: Generalized abdominal pain. Crohn's disease. COMPARISON STUDY: Abdominal CT dated 05/30/2020. TECHNIQUE: Following the IV administration of 87 cc of Optiray 350, CT scan of the abdomen and pelvis is performed from the lung bases to the proximal femora. Images are reviewed in the axial, sagittal, and coronal planes. IV contrast was administered without complication. A dose lowering technique was utilized adhering to the principles of ALARA. CT DOSE: 1428.89 mGy.cm FINDINGS: Lung bases: The heart is normal in size and without pericardial effusion. The lung bases are clear. Liver: The contrast-enhanced liver is normal in size, contour, and attenuation. There is no intrahepatic biliary ductal dilatation. The hepatic veins and portal veins are patent. Gallbladder: Unremarkable. Spleen: Normal in size and attenuation. Pancreas: Unremarkable. Adrenal glands: Unremarkable. Kidneys: The contrast enhanced kidneys are normal in size and without hydronephrosis. The kidneys enhance symmetrically. Abdominal vasculature: The abdominal aorta is normal in course and caliber. Bowel: There is a long segment of wall thickening and hyperemia involving the distal/terminal ileum. The proximal small bowel is significantly distended and fluid-filled, with loops measuring up to 4.2 cm diameter. A focal transition p oint is seen in the right lower quadrant about the inflamed loops of bowel on image #[id number]. This is consistent with a small bowel obstruction. An underlying stricture is suspect. The distal ileum and colon are decompressed. The appendix is well-visualized and normal. Peritoneum: No intraperitoneal free air is seen. There is a small volume of free fluid in the pelvis. There is a fat-containing umbilical hernia. Lymphadenopathy: There is trace interloop fluid. No pneumatosis intestinalis or portal venous gas is seen. Numerous prominent right lower quadrant mesenteric lymph nodes measure up to 11 mm short axis. Pelvic viscera: The bladder, prostate, and seminal vesicles are normal as imaged. There is no evidence of perianal disease. Skeletal structures: Scattered bone islands are seen in the pelvis. No lytic or blastic lesions are seen. IMPRESSION: 1. There is a long segment of wall thickening and mucosal hyperemia involving the distal/terminal ileum. This is consistent with the patient's history of Crohn's, and likely represents active disease. 2. There is a small bowel obstruction. A focal transition point is seen involving the ileum in the right lower quadrant above the inflamed distal small bowel. An underlying stricture is favored. 3. There is interloop fluid and a small volume of free fluid in the pelvis. No abscess is seen. 4. No intraperitoneal free air is identified. No pneumatosis intestinalis or portal venous gas is seen. 5. Additional findings as above. ACT 112: Negative or not required by law. Electronically signed by: Deuce Ambrose M.D. 09/23/2022 9:23 PM Discharge Plan Visit Data Chief Complaint: GI Assessment Stated Complaint: CHRON'S FLARE UP,ABDOMINAL PAIN,NAUSEA ED Provider: Lee Ruiz Discharge Problem: Small bowel obstruction, Abdominal pain, Crohn's disease Patient Disposition: Admitted As Inpatient Discharge Instructions Interventions: ED Discharge Assessment Last Done: 09/23/22 23:17
[2022-09-23] MEDS ORDERED: OPTIRAY 350 100ml IV ONE (20:54)
[2022-09-23] MEDS ORDERED: MoRPHine SULFATE 4 MG/ML 1 ML CARP\\VIAL IV STA ×2 (21:19→21:36)
--- NOTE | 2022-09-23 21:26 | CT Scan Report ---
CT SCAN OF THE ABDOMEN AND PELVIS WITH IV CONTRAST CLINICAL HISTORY: Generalized abdominal pain. Crohn's disease. COMPARISON STUDY: Abdominal CT dated 05/30/2020. TECHNIQUE: Following the IV administration of 87 cc of Optiray 350, CT scan of the abdomen and pelvi s is performed from the lung bases to the proximal femora. Images are reviewed in the axial, sagittal , and coronal planes. IV contrast was administered without complication. A dose lowering technique wa s utilized adhering to the principles of ALARA. CT DOSE: 1428.89 mGy.cm FINDINGS: Lung bases: The heart is normal in size and without pericardial effusion. The lung bases are clear. Liver: The contrast-enhanced liver is normal in size, contour, and attenuation. There is no intrahepa tic biliary ductal dilatation. The hepatic veins and portal veins are patent. Gallbladder: Unremarkable. Spleen: Normal in size and attenuation. Pancreas: Unremarkable. Adrenal glands: Unremarkable. Kidneys: The contrast enhanced kidneys are normal in size and without hydronephrosis. The kidneys enh ance symmetrically. Abdominal vasculature: The abdominal aorta is normal in course and caliber. Bowel: There is a long segment of wall thickening and hyperemia involving the distal/terminal ileum. The proximal small bowel is significantly distended and fluid-filled, with loops measuring up to 4.2 cm diameter. A focal transition point is seen in the right lower quadrant about the inflamed loops of bowel on image #[id number]. This is consistent with a small bowel obstruction. An underlying stricture is s uspect. The distal ileum and colon are decompressed. The appendix is well-visualized and normal. Peritoneum: No intraperitoneal free air is seen. There is a small volume of free fluid in the pelvis. There is a fat-containing umbilical hernia. Lymphadenopathy: There is trace interloop fluid. No pneumatosis intestinalis or portal venous gas is seen. Numerous prominent right lower quadrant mesenteric lymph nodes measure up to 11 mm short axis. Pelvic viscera: The bladder, prostate, and seminal vesicles are normal as imaged. There is no evidenc e of perianal disease. Skeletal structures: Scattered bone islands are seen in the pelvis. No lytic or blastic lesions are s een. IMPRESSION: 1. There is a long segment of wall thickening and mucosal hyperemia involving the distal/terminal ile um. This is consistent with the patient's history of Crohn's, and likely represents active disease. 2. There is a small bowel obstruction. A focal transition point is seen involving the ileum in the ri ght lower quadrant above the inflamed distal small bowel. An underlying stricture is favored. 3. There is interloop fluid and a small volume of free fluid in the pelvis. No abscess is seen. 4. No intraperitoneal free air is identified. No pneumatosis intestinalis or portal venous gas is see n. 5. Additional findings as above. ACT 112: Negative or not required by law. Electronically signed by: Deuce Ambrose M.D. 09/23/2022 9:23 PM
[2022-09-23] MEDS ORDERED: ONDANSETRON INJ 2 MG/ML 2 ML VIAL IV STA (21:36)
--- NOTE | 2022-09-23 22:01 | Surgery Consultation ---
Date of Consultation September 23, 2022 Assessment & Plan (1) Small bowel obstruction: (2) Crohn's ileitis: I discussed with the treating emergency room physician and feel that the patient's presenting symptomatology is likely due to a Crohn's exacerbation. He notes he is having the patient admitted on the medical service. We recommend proceeding as follows: Provide analgesics Provide antiemetics Implement n.p.o. status Provide IV fluid for hydration I discussed with the patient that at the present time he is not have any nausea or vomiting and his abdominal exam is relatively benign. I did discuss with him that if any nausea or vomiting ensues or if his abdominal exam worsens he may require NG tube decompression. I do feel we can hold on that modality for the present time. I recommend obtaining a gastroenterology consultation as patient will likely require steroids due to the inflammation noted of his ileum on CT scan I discussed with the patient that we would like to avoid any surgical intervention due to his history of Crohn's disease Additional recommendations be forthcoming based on his clinical course as unfolds Additional plan as directed by the primary service Supervising Physician Co-Signing Physician Notes I personally saw and evaluated the patient with Amrit Olivo PA-C and agree with the assessment and plan. 37-year-old male with Crohn's disease and small bowel obstruction CT images and results personally viewed by myself, he has a segment of ileum that is inflamed causing a small bowel obstruction He is being admitted to the medical team, would treat the obstruction medically with steroids and IV antibiotics No plans for any surgical intervention History of Present Illness Reason for Consultation: Small bowel obstruction History of Present Illness This is a 37-year-old male who presented to the emergency department [facility] secondary to abdominal pain. Patient notes that he has a history of Crohn's disease which was diagnosed in 2011. He said the diagnosis was obtained via colonoscopy as well as upper endoscopy. He says he was previously taking Remicade but stopped this medicine in 2016. He has been considering initiating Humira but has not yet done so as he was told he may require surgery. As of now he is not taking any active medications for his Crohn's disease other than occasional steroids when he has exacerbations of this condition. The patient notes approximate 3 weeks ago he was having abdominal pain and he presented to the emergency department but he noted that there was a lengthy wait time in the emergency department and personal obligations prevented him from staying so he left the emergency department being seen. He presented to the emergency department 1 week later on 09/01/2022 secondary to again having abdominal pain. Patient said that he insisted he be given analgesics as well as steroids and be sent home which was undertaken. Patient presented to the emergency department today as he has been having abdominal pain in the periumbilical region which does not radiate. He reports nausea without vomiting. He says that he had a normal bowel movement this morning along with passing flatus. He denies any bright blood per rectum, melena or hematochezia. He denies any fevers, shakes, or chills. He denies any dysuria. Patient notes that concerning his Crohn's disease he has never had any abdominal surgeries. He does follow locally with gastroenterology, Dr. Baxter. Patient notes that he did have a consultation with a colorectal surgeon at [facility] where consideration was being given to performing a surgical resection of some of his inflamed small bowel but this has not been done yet. Since arrival to the emergency department the patient has had labs and imaging which independent reviewed. CT scan of the abdomen pelvis showed the patient had a long segment of mucosal hyperemia and inflammation involving the distal terminal ileum which was felt to represent active Crohn's disease. There is a small bowel obstruction with a transition point involving the ileum in the right lower quadrant near the inflamed segment of small bowel favoring an underlying stricture. Labs include a CBC her white blood cell count and platelet count were normal. His hemoglobin and hematocrit were 13.6 and 40.1. Chemistry profile showed sodium, potassium, BUN, and creatinine were normal. There is no elevation of LFTs or lipase. Urinalysis was not indicative of infection. At the time of interview the patient was resting comfortably in bed in no distress Allergies Allergy/AdvReac Type Severity Reaction Status Date / Time NSAIDS (Non-Steroidal AdvReac Severe CROHNS Verified 09/23/22 21:39 Anti-Inflamma DISEASE--INSTRUCTED TO AVOID Home Medications Medication Instructions Recorded Confirmed Type No Known Home Medications 09/23/22 09/23/22 History Patient History Medical History Attention deficit disorder (ADD) Crohns disease GERD (gastroesophageal reflux disease) History of anemia Obese Surgical History History of colonoscopy (06/2018) History of esophagogastroduodenoscopy (EGD) History of tonsillectomy [place] teeth removed Family History Grandfather (Paternal) Heart disease Mother Irritable bowel Grandfather (Maternal) Scleroderma Other No family history of adverse response to anesthesia Denies family history of Colon cancer Ovarian cancer Prostate cancer Myocardial infarction Breast cancer Social History Smoking Status: Former smoker Tobacco Type: Cigarettes and E-cigarettes / Vaping packs per day: 0.5; Cigarettes Per Day: 3 CIG DAILY; Second Hand Exposure: No; Hx Alcohol Use: Yes Alcohol type: beer Hx Substance Use: No Preferred Language: Omani Communication Ability: Effective Visual Impairment: No Limitations Hearing Ability: Normal Forder Operator Required: No Beliefs That Will Affect Care: None marital status: Single Current Living Situation: Other Current Living Situation Comment: [employer] current occupational status: employed current occupation: Delivery Feels Safe at Home: Yes Safety Concerns: Feels Safe At This Time Childhood Exposure to Second-Hand Smoke: No Dental Care, Regularly: Yes Physical Activity Frequency: 3-4 Times per Week Seatbelt Use: always Sunscreen Use: No Assistive Devices: None Review of Systems Constitutional: no fever and no chills Eyes: no eye pain Ear, Nose, Mouth, Throat: no ear pain Respiratory: no cough and no dyspnea Cardiovascular: no chest pain Gastrointestinal: as per Subjective / HPI Genitourinary: no dysuria Musculoskeletal: no back pain Integumentary: no rash Neurologic: no localized weakness Physical Exam Constitutional: WD/WN, vitals as above Eyes: no conjunctival abnormality ENMT: Ears: no hearing impairment and no external ear abnormality Mouth: no oropharynx abnormality Neck: trachea midline Respiratory: normal respiratory effort; no respiratory distress and no labored breathing Cardiovascular: Rate/Rhythm: regular rate and regular rhythm Gastrointestinal (Abdomen): Abdomen is rotund but soft. There is only minimal pain noted with palpation in the periumbilical region. There is no rebound tenderness or guarding. There are no signs of peritonitis. Musculoskeletal: No calf tenderness Skin: no rashes Neurologic: moves all extremities Psychiatric: A+Ox3, euthymic affect Results & Data Vital Signs (Past 12 Hours) Vital Signs Temp Pulse Pulse Resp BP BP Pulse Ox 09/23/22 21:01 71 18 159/99 H 98 09/23/22 19:53 74 18 157/106 H 98 09/23/22 18:55 36.4 C L 78 16 153/101 H 97 O2 Del Method 09/23/22 21:01 Room Air 09/23/22 19:53 Room Air 09/23/22 18:55 Room Air PG Care Time/CCT Total # of Minutes Spent Total Time Spent with Patient: Total time spent is greater than 50% in coordination of care (as documented) at patient's floor/unit and/or counseling patient: Coding Level of Care Code 82357 IN/OBS CONSULT LVL 5,80M Diagnoses Small bowel obstruction K56.609 Crohn's ileitis K50.00
[2022-09-23] MEDS ORDERED: ONDANSETRON INJ 2 MG/ML 2 ML VIAL IV PRN (23:38)
[2022-09-23] MEDS ORDERED: PIPERACILLIN/TAZOBACTAM 4.5 GM (over 30 mins) IV ONE (23:45)
[2022-09-23] MEDS: NSS + 20MEQ KCL 20 MEQ/1,000 ML BAG IV SCH (23:52)
[2022-09-23] MEDS: MoRPHine SULFATE 2 MG/ML CARP IV PRN (23:52)
[2022-09-23] MEDS: methylPREDNISolone 40 MG in SYRINGE 0 ML IV SCH (23:53)
[2022-09-24] MEDS: ACETAMINOPHEN 1,000 MG/100 ML VIAL IV PRN ×3 (00:25→22:06)
--- NOTE | 2022-09-24 03:27 | History & Physical Report ---
Date of Service September 24, 2022 The patient was seen and examined on 09/23/2022 Assessment & Plan (1) Small bowel obstruction: (2) Crohn's colitis: (3) Attention deficit disorder (ADD): (4) Abdominal pain: (5) Crohn's disease: Plan Small bowel obstruction/active inflammation of Crohn's in the distal/terminal ileum- Patient with active Crohn's inflammation with transition point of small bowel obstruction in the right lower quadrant with likely underlying stricture. Placed on methylprednisolone 40 mg IV every 8 hours Zosyn 4.5 g IV every 8 hours Famotidine 20 mg IV every 12 hours Zofran 4 mg IV every 6 hours as needed Acetaminophen 1 g IV every 8 hours as needed mild pain or fever Morphine sulfate 2 mg IV every 4 hours as needed moderate pain Morphine sulfate 4 mg IV every 4 hours as needed for severe pain NSS + KCl 20 mEq at 80 mils per hour Seen by general surgery and emergency department and will follow Consult his industrial safety and health manager Dr. Baxter No need for NG tube at this time Admission and Anticipated Discharge Date Admission Date: September 23, 2022 History of Present Illness Chief Complaint: The patient presented to the emergency department for assessment of abdominal pain with nausea but no vomiting. His initial presentation to the ED was 2 weeks ago, where he was placed on steroids, which he felt better with, but when he stopped the steroids, his symptoms got significantly worse Primary Care Provider: Stew Li DO The patient is a 37-year-old male with past medical history including Crohn's disease, ADD, Crohn's ileitis, and obesity. He presents to the emergency department with symptoms as noted above. CT scan of abdomen pelvis was consistent with small bowel obstruction with transition point in the right lower quadrant above an area of active inflammation in the distal/terminal ileum consistent with a Crohn's exace rbation. There is also thought to be an underlying stricture in this area. From the ED the patient received the following: Normal saline 1 L, morphine sulfate 4 mg IV x2, Tylenol 1 g IV. Allergies Allergy/AdvReac Type Severity Reaction Status Date / Time NSAIDS (Non-Steroidal AdvReac Severe CROHNS Verified 09/23/22 21:39 Anti-Inflamma DISEASE--INSTRUCTED TO AVOID Home Medications Medication Instructions Recorded Confirmed Type No Known Home Medications 09/23/22 09/23/22 History Past Med/Surg History Medical History Attention deficit disorder (ADD) Crohns disease GERD (gastroesophageal reflux disease) History of anemia Obese Surgical History History of colonoscopy (06/2018) History of esophagogastroduodenoscopy (EGD) History of tonsillectomy [place] teeth removed Family History Grandfather (Paternal) Heart disease Mother Irritable bowel Grandfather (Maternal) Scleroderma Other No family history of adverse response to anesthesia Denies family history of Colon cancer Ovarian cancer Prostate cancer Myocardial infarction Breast cancer Social History Smoking Status: Former smoker Tobacco Type: Cigarettes and E-cigarettes / Vaping packs per day: 0.5; Cigarettes Per Day: 3 CIG DAILY; Second Hand Exposure: No; Hx Alcohol Use: Yes Alcohol type: beer Hx Substance Use: No Preferred Language: Czech Communication Ability: Effective Visual Impairment: No Limitations Hearing Ability: Normal Pbx Mechanic Required: No Beliefs That Will Affect Care: None marital status: Single Current Living Situation: Other Current Living Situation Comment: [employer] current occupational status: employed current occupation: Delivery Feels Safe at Home: Yes Safety Concerns: Feels Safe At This Time Childhood Exposure to Second-Hand Smoke: No Dental Care, Regularly: Yes Physical Activity Frequency: 3-4 Times per Week Seatbelt Use: always Sunscreen Use: No Assistive Devices: None Review of Systems Review of Systems: The patient denies chest pain, palpitations, shortness of breath, dyspnea on exertion, cough, lower extremity swelling, sore throat, fevers, chills, sweats, weight change, vomiting, blood in urine or stool, dysuria, urinary frequency or urgency, lightheadedness, dizziness, headache, memory loss, loss of consciousness, rash, abnormal bruising or bleeding, imbalance, focal or generalized weakness, numbness or tingling in arms or legs, generalized arthralgias or myalgias, back or neck pain, or night sweats. The review of systems is otherwise negative other than for that already noted ab ove, and at least 10 systems have been reviewed. Physical Exam Physical Exam: The patient is awake, alert and oriented 3, well developed and well nourished, normocephalic and atraumatic, lying in bed and in no acute distress. HEENT--PERRL, EOMI, mucous membranes and oropharynx dry. Neck--supple. No JVD. No bruits. Thyroid normal, trachea midline, no adenopathy. Heart--normal S1 and S2. No murmurs, rubs or gallops. Lungs--clear bilaterally, no respiratory distress, no accessory muscle use. Abdomen--normal bowel sounds and soft. Nontender. Nondistended, no hernias or masses, no organomegaly. Extremities--no cyanosis or clubbing. No edema. Dermatologic--normal skin turgor, normal color, no abnormal lymph nodes, no rash. Neurologic--cranial nerves II through XII grossly intact. Rheumatologic--normal range of motion. Psychiatric--normal affect. Results & Data Results & Data Vital Signs (Past 12 Hours) Vital Signs Temp Pulse Pulse Resp BP BP Pulse Ox 09/23/22 23:40 37 C 61 18 167/94 H 96 09/23/22 21:01 71 18 159/99 H 98 09/23/22 19:53 74 18 157/106 H 98 09/23/22 18:55 36.4 C L 78 16 153/101 H 97 O2 Del Method 09/23/22 23:40 Room Air 09/23/22 21:01 Room Air 09/23/22 19:53 Room Air 09/23/22 18:55 Room Air Laboratory Results Laboratory Results WBC 9.25 K/ul (4.8-10.8) 09/23/22 19:22 RBC 4.77 M/uL (4.70-6.10) 09/23/22 19:22 Hgb 13.6 g/dl (14.0-18.0) L 09/23/22 19:22 Hct 40.1 % (42.0-52.0) L 09/23/22 19:22 MCV 84.1 fL (80.0-100.0) 09/23/22 19: MCH 28.5 pg (25.0-34.0) 09/23/22 19:22 MCHC 33.9 g/dL (32.0-36.0) 09/23/22 19: RDW Std Deviation 41.0 fL (36.4-46.3) 09/23/22: RDW Coeff of [place] 13.3 % (11.5-14.5) 09/23/22: Plt Count 331 K/uL (130-400) 09/23/22: MPV 9.2 fL (9.4-12.4) L 09/23/22: Immature Gran % (Auto) 0.4 % 09/23/22: Neut % (Auto) 85.9 % 09/23/22: Lymph % (Auto) 9.6 % 09/23/22: [place] % (Auto) 3.7 % 09/23/22: Eos % (Auto) 0.2 % 09/23/22: Baso % (Auto) 0.2 % 09/23/22: Neut # (Auto) 7.94 K/uL (1.40-6.50) H 09/23/22: Lymph # (Auto) 0.89 K/uL (1.2-3.4) L 09/23/22: [place] # (Auto) 0.34 K/uL (0.11-0.59) 09/23/22: Eos # (Auto) 0.02 K/uL (0-0.50) 09/23/22: Baso # (Auto) 0.02 K/uL (0-0.2) 09/23/22: Immature Gran # (Auto) 0.04 K/uL (0.01-0.20) 09/23/22 19: Sodium 136 mmol/L (136-145) 09/23/22 19: Potassium 4.5 mmol/L (3.5-5.1) 09/23/22: Chloride 106 mmol/L (98-107) 09/23/22: Carbon Dioxide 22 mmol/L (21-32) 09/23/22 19: Anion Gap 8 (3-11) 09/23/22 19: BUN 19 mg/dl (6-23) 09/23/22: Creatinine 0.86 mg/dl (0.6-1.4) 09/23/22 19: Est Cr Clr Drug Dosing 165.1 ml/min 09/23/22 19: Est GFR ( Amer) 129.3 ml/min 09/23/22 19: Est GFR (Non-Af Amer) 111.6 ml/min 09/23/22 19: BUN/Creatinine Ratio 22.1 (10-20) H 09/23/22 19: Glucose 113 mg/dl (70-99(Fasting)) H 09/23/22 19: Calcium 9.6 mg/dl (8.5-10.1) 09/23/22 19: Total Bilirubin 0.6 mg/dl (0.2-1.0) 09/23/22 19: AST 25 U/L (13-39) 09/23/22 19: ALT 32 U/L (7-52) 09/23/22 19: Alkaline Phosphatase 83 U/L (34-104) 09/23/22 19: Total Protein 7.4 gm/dl (6.0-8.3) 09/23/22 19: Albumin 4.4 gm/dl (3.4-5.0) 09/23/22: Globulin 3.0 gm/dl (2.5-4.0) 09/23/22 19: Albumin/Globulin Ratio 1.5 (0.9-2) 09/23/22 19: Lipase 9 U/L (11-82) L 09/23/22 19: Urine Color Yellow 09/23/22: Urine Appearance Clear (Clear) 09/23/22: Urine pH 6.0 (4.5-7.5) 09/23/22: Ur Specific [place] 1.021 (1.000-1.030) 09/23/22: Urine Protein Negative (Negative) 09/23/22: Urine Glucose (UA) Negative (Negative) 09/23/22: Urine Ketones Negative (Negative) 09/23/22: Urine Blood Negative (Negative) 09/23/22: Urine Nitrite Negative (Negative) 09/23/22: Urine Bilirubin Negative (Negative) 03/15/23 19:22 Urine Urobilinogen Negative (Negative) 09/23/22 19:22 Ur Leukocyte Esterase Negative (Negative) 09/23/22 19:22 SARS-CoV-2, RNA, NAAT NEGATIVE (NEGATIVE) 09/23/22 21:53 Impressions Abdomen/Pelvis CT 09/23/22 20:28 CT SCAN OF THE ABDOMEN AND PELVIS WITH IV CONTRAST CLINICAL HISTORY: Generalized abdominal pain. Crohn's disease. COMPARISON STUDY: Abdominal CT dated 05/30/2020. TECHNIQUE: Following the IV administration of 87 cc of Optiray 350, CT scan of the abdomen and pelvis is performed from the lung bases to the proximal femora. Images are reviewed in the axial, sagittal, and coronal planes. IV contrast was administered without complication. A dose lowering technique was utilized adhering to the principles of ALARA. CT DOSE: 1428.89 mGy.cm FINDINGS: Lung bases: The heart is normal in size and without pericardial effusion. The lung bases are clear. Liver: The contrast-enhanced liver is normal in size, contour, and attenuation. There is no intrahepatic biliary ductal dilatation. The hepatic veins and portal veins are patent. Gallbladder: Unremarkable. Spleen: Normal in size and attenuation. Pancreas: Unremarkable. Adrenal glands: Unremarkable. Kidneys: The contrast enhanced kidneys are normal in size and without hydronephrosis. The kidneys enhance symmetrically. Abdominal vasculature: The abdominal aorta is normal in course and caliber. Bowel: There is a long segment of wall thickening and hyperemia involving the distal/terminal ileum. The proximal small bowel is significantly distended and fluid-filled, with loops measuring up to 4.2 cm diameter. A focal transition point is seen in the right lower quadrant about the inflamed loops of bowel on image #[id number]. This is consistent with a small bowel obstruction. An underlying stricture is suspect. The distal ileum and colon are decompressed. The appendix is well-visualized and normal. Peritoneum: No intraperitoneal free air is seen. There is a small volume of free fluid in the pelvis. There is a fat-containing umbilical hernia. Lymphadenopathy: There is trace interloop fluid. No pneumatosis intestinalis or portal venous gas is seen. Numerous prominent right lower quadrant mesenteric lymph nodes measure up to 11 mm short axis. Pelvic viscera: The bladder, prostate, and seminal vesicles are normal as imaged. There is no evidence of perianal disease. Skeletal structures: Scattered bone islands are seen in the pelvis. No lytic or blastic lesions are seen. IMPRESSION: 1. There is a long segment of wall thickening and mucosal hyperemia involving the distal/terminal ileum. This is consistent with the patient's history of Crohn's, and likely represents active disease. 2. There is a small bowel obstruction. A focal transition point is seen involving the ileum in the right lower quadrant above the inflamed distal small bowel. An underlying stricture is favored. 3. There is interloop fluid and a small volume of free fluid in the pelvis. No abscess is seen. 4. No intraperitoneal free air is identified. No pneumatosis intestinalis or portal venous gas is seen. 5. Additional findings as above. ACT 112: Negative or not required by law. Electronically signed by: Deuce Ambrose M.D. 09/23/2022 9:23 PM Code Status & VTE Plan Code Status Full code VTE Prophylaxis Plan VTE Prophylaxis will be ordered: Yes PG Care Time/CCT Total # of Minutes Spent Total Time Spent with Patient: Total time spent is greater than 50% in coordination of care (as documented) at patient's floor/unit and/or counseling patient: Coding Level of Care Code 48083 INT INP/OBS CARE 2/55MIN Diagnoses Small bowel obstruction K56.609 Crohn's colitis K50.10 Attention deficit disorder (ADD) F98.8 Abdominal pain R10.9 Crohn's disease K50.90
[2022-09-24] MEDS: MoRPHine SULFATE 2 MG/ML CARP IV PRN ×7 (04:11→23:36)
[2022-09-24] MEDS: PIPERACILLIN/TAZOBACTAM 4.5 GM in DEXTROSE 5% 100 ML IV SCH ×3 (05:55→22:06)
[2022-09-24] MEDS: methylPREDNISolone 40 MG in SYRINGE 0 ML IV SCH ×3 (07:18→23:36)
[2022-09-24 07:56] LABS: Basophils # (auto) 0.01 K/uL (0-0.2); Basophils % (auto) 0.1 %; Hematocrit (blood only) 38.2 % (42.0-52.0); Hemoglobin 12.9 g/dl (14.0-18.0); Immature Granulocytes # (auto) 0.02 K/uL (0.01-0.20); Immature Granulocytes % (auto) 0.2 %; Lymphocytes # (auto) 0.48 K/uL (1.2-3.4); Lymphocytes % (auto) 5.3 %; Mean Corpuscular Hemoglobin 28.6 pg (25.0-34.0); Mean Corpuscular Hgb Conc 33.8 g/dL (32.0-36.0); Mean Corpuscular Volume 84.7 fL (80.0-100.0); Mean Platelet Volume 9.3 fL (9.4-12.4); Monocytes # (auto) 0.46 K/uL (0.11-0.59); Monocytes % (auto) 5.1 %; Neutrophils # (auto) 8.04 K/uL (1.40-6.50); Neutrophils % (auto) 89.3 %; Platelet Count 324 K/uL (130-400); RDW Coefficient of Variation 13.4 % (11.5-14.5); RDW Standard Deviation 41.4 fL (36.4-46.3); Red Blood Count 4.51 M/uL (4.70-6.10); White Blood Count 9.01 K/ul (4.8-10.8)
[2022-09-24 08:07] LABS: Albumin Globulin Ratio 1.7 (0.9-2); BUN Creatinine Ratio 19.2 (10-20); Bilirubin,Total 0.8 mg/dl (0.2-1.0); Calcium 8.5 mg/dl (8.5-10.1); Creatinine Clr Calc Pharmacy 182.4 ml/min; Est GFR (African American) 134.6 ml/min; Est GFR (Non-African American) 116.1 ml/min; Globulin 2.3 gm/dl (2.5-4.0); Magnesium 1.9 mg/dl (1.7-2.4); Potassium 4.3 mmol/L (3.5-5.1); Total Protein 6.3 gm/dl (6.0-8.3)
--- NOTE | 2022-09-24 10:08 | Gastrointestinal Consultation ---
Date of Consultation September 24, 2022 Assessment & Plan (1) Crohn's ileitis: (2) Small bowel obstruction: (3) Ileal stenosis: Plan 1. NPO for now. 2. Agree with IV Solu-Medrol as prescribed by primary team. 3. Recommend consultation by case management to determine eligibility for Eloisa mcguire given his chronic disease. 4. Ultimately, patient requires an elective bowel resection followed by initiation of biologic therapy post-operatively to prevent recurrent hospital admissions for bowel obstructions. 5. Continue supportive care. Thank you for allowing us to participate in the care of this patient. If you have any questions or concerns, please do not hesitate to contact us. History of Present Illness Reason for Consultation: Crohn's exacerbation, SBO Requesting Physician: Dr. Weldon Attending Physician: Li Robb MD History of Present Illness Patient is a 37 y.o. with a history of Crohn's ileitis diagnosed initially on 11/30/[address] Barron. He was initially prescribed mesalamine treatment for his Crohn's disease but was recommended to start biologic therapy due to ongoing symptoms and lack of strong evidence for use in Crohn's disease. He was then prescribed Remicade which he had taken with excellent symptom/disease control for 18 months until he self-discontinued therapy citing loss of insurance. Since that time, he has been relatively nonadherent to recommendations from our office. Has not resumed any maintenance therapy and has not followed through with recommendation on an elective bowel resection despite numerous hospitalizations for small bowel obstructions. Again, he reports today that he has not had any insurance and was "feeling ok" and did not follow up with the surgical plan by [facility] colorectal surgery. Last OV with our office was in 2019 and he was arranged for both EGD and Dr. Baxter which were performed on 06/14/20. EGD was normal and colonoscopy demonstrated active Crohn's disease with erythematous mucosa and ulceration. He then canceled/no showed for his post-procedure follow up appointments with Nicky Car PA-C and became lost to follow up. Over the past month, he reports intermittent abdominal pain and bloating. States he presented to the ER 09/01/22 "to get some Prednisone". He was seen, evaluated and discharged home on a brief Prednisone taper. Upon completion, however, his symptoms returned. States he did go the ER one week ago but left prior to evaluation due to long wait times. Yesterday, his abdominal pain became severe and he therefore returned to the ER for concern of returning obstruction. On arrival, he was found to have an abnormal CT of the abdomen and pelvis demonstr ating a 4.2 cm segment of ileitis with suspected stenosis. Laboratory testing reviewed. No leukocytosis, mild normocytic anemia of 13.9/40.1. He has been placed on IV Solu-Medrol and NPO. Evaluated by general surgery. No plan for emergent intervention. Currently, he rates his periumbilical abdominal pain as 8/10 despite opioid analgesics. Nausea but no vomiting. Passing flatus. No bms or rectal bleeding. +bloating. No fevers or chills. No systemic manifestations of IBD. Allergies Allergy/AdvReac Type Severity Reaction Status Date / Time NSAIDS (Non-Steroidal AdvReac Severe CROHNS Verified 09/23/22 21:39 Anti-Inflamma DISEASE--INSTRUCTED TO AVOID Home Medications Medication Instructions Recorded Confirmed Type No Known Home Medications 09/23/22 09/23/22 History Patient History Medical History Attention deficit disorder (ADD) Crohns disease GERD (gastroesophageal reflux disease) History of anemia Obese Surgical History History of colonoscopy (06/2018) History of esophagogastroduodenoscopy (EGD) History of tonsillectomy [place] teeth removed Family History Grandfather (Paternal) Heart disease Mother Irritable bowel Grandfather (Maternal) Scleroderma Other No family history of adverse response to anesthesia Denies family history of Colon cancer Ovarian cancer Prostate cancer Myocardial infarction Breast cancer Social History Smoking Status: Former smoker Tobacco Type: Cigarettes and E-cigarettes / Vaping packs per day: 0.5; Cigarettes Per Day: 3 CIG DAILY; Second Hand Exposure: No; Hx Alcohol Use: Yes Alcohol type: beer Hx Substance Use: No Preferred Language: [place] Communication Ability: Effective Visual Impairment: No Limitations Hearing Ability: Normal Family Engagement Specialist Required: No Beliefs That Will Affect Care: None marital status: Single Current Living Situation: Other Current Living Situation Comment: [employer] current occupational status: employed current occupation: Delivery Feels Safe at Home: Yes Safety Concerns: Feels Safe At This Time Childhood Exposure to Second-Hand Smoke: No Dental Care, Regularly: Yes Physical Activity Frequency: 3-4 Times per Week Seatbelt Use: always Sunscreen Use: No Assistive Devices: None Review of Systems Review of Systems: All systems reviewed & are unremarkable except as noted in HPI & below Physical Exam Constitutional: WD/WN, vitals as above Eyes: EOM intact bilaterally Neck: normal appearance Respiratory: normal respiratory effort, lungs clear to auscultation Cardiovascular: Rate/Rhythm: regular rate and regular rhythm Heart Sounds: no gallop and no murmur Gastrointestinal (Abdomen): Inspection/Auscultation: + abdomen distended and + hypoactive bowel sounds Percussion/Palpation: + abdomen tender and abdomen soft; no guarding and abdomen not rigid Musculoskeletal: Extremities: no cyanosis no lower extremity edema Skin: no rashes, warm and dry Neurologic: moves all extremities Psychiatric: A+Ox3, euthymic affect Results & Data Vital Signs (Past 12 Hours) Vital Signs Temp Pulse Resp BP Pulse Ox O2 Del Method 09/24/22 07:22 36.9 C 76 16 128/80 95 Room Air 09/23/22 23:40 37 C 61 18 167/94 H 96 Room Air Diagnostic Findings Laboratory Results WBC 9.01 K/ul (4.8-10.8) 09/24/22 07:16 RBC 4.51 M/uL (4.70-6.10) L 09/24/22 07:16 Hgb 12.9 g/dl (14.0-18.0) L 09/24/22 07:16 Hct 38.2 % (42.0-52.0) L 09/24/22 07:16 MCV 84.7 fL (80.0-100.0) 09/24/22 07:16 MCH 28.6 pg (25.0-34.0) 09/24/22 07:16 MCHC 33.8 g/dL (32.0-36.0) 09/24/22 07:16 RDW Std Deviation 41.4 fL (36.4-46.3) 09/24/22 07:16 RDW Coeff of Roopa 13.4 % (11.5-14.5) 09/24/22 07:16 Plt Count 324 K/uL (130-400) 09/24/22 07:16 MPV 9.3 fL (9.4-12.4) L 09/24/22 07:16 Immature Gran % (Auto) 0.2 % 09/24/22 07:16 Neut % (Auto) 89.3 % 09/24/22 07:16 Lymph % (Auto) 5.3 % 09/24/22 07:16 [place] % (Auto) 5.1 % 09/24/22 07:16 Eos % (Auto) 0.0 % 09/24/22 07:16 Baso % (Auto) 0.1 % 09/24/22 07:16 Neut # (Auto) 8.04 K/uL (1.40-6.50) H 09/24/22 07:16 Lymph # (Auto) 0.48 K/uL (1.2-3.4) L 09/24/22 07:16 [place] # (Auto) 0.46 K/uL (0.11-0.59) 09/24/22 07:16 Eos # (Auto) 0.00 K/uL (0-0.50) 09/24/22 07:16 Baso # (Auto) 0.01 K/uL (0-0.2) 09/24/22 07:16 Immature Gran # (Auto) 0.02 K/uL (0.01-0.20) 09/24/22 07:16 Sodium 137 mmol/L (136-145) 09/24/22 07:16 Potassium 4.3 mmol/L (3.5-5.1) 09/24/22 07:16 Chloride 106 mmol/L (98-107) 09/24/22 07:16 Carbon Dioxide 25 mmol/L (21-32) 09/24/22 07:16 Anion Gap 6 (3-11) 09/24/22 07:16 BUN 15 mg/dl (6-23) 09/24/22 07:16 Creatinine 0.78 mg/dl (0.6-1.4) 09/24/22 07:16 Est Cr Clr Drug Dosing 182.4 ml/min 09/24/22 07:16 Est GFR ( Amer) 134.6 ml/min 09/24/22 07:16 Est GFR (Non-Af Amer) 116.1 ml/min 09/24/22 07:16 BUN/Creatinine Ratio 19.2 (10-20) 09/24/22 07:16 Glucose 135 mg/dl (70-99(Fasting)) H 09/24/22 07:16 Calcium 8.5 mg/dl (8.5-10.1) 09/24/22 07:16 Magnesium 1.9 mg/dl (1.7-2.4) 09/24/22 07:16 Total Bilirubin 0.8 mg/dl (0.2-1.0) 09/24/22 07:16 AST 18 U/L (13-39) 09/24/22 07:16 ALT 26 U/L (7-52) 09/24/22 07:16 Alkaline Phosphatase 72 U/L (34-104) 09/24/22 07:16 Total Protein 6.3 gm/dl (6.0-8.3) 09/24/22 07:16 Albumin 4.0 gm/dl (3.4-5.0) 09/24/22 07:16 Globulin 2.3 gm/dl (2.5-4.0) L 09/24/22 07:16 Albumin/Globulin Ratio 1.7 (0.9-2) 09/24/22 07:16 Lipase 9 U/L (11-82) L 09/23/22 19:22 Urine Color Yellow 09/23/22 19:22 Urine Appearance Clear (Clear) 09/23/22 19: Urine pH 6.0 (4.5-7.5) 09/23/22 19:22 Ur Specific [place] 1.021 (1.000-1.030) 09/23/22 19:22 Urine Protein Negative (Negative) 09/23/22 19:22 Urine Glucose (UA) Negative (Negative) 09/23/22 19: Urine Ketones Negative (Negative) 09/23/22 19: Urine Blood Negative (Negative) 09/23/22 19:22 Urine Nitrite Negative (Negative) 09/23/22 19: Urine Bilirubin Negative (Negative) 09/23/22 19: Urine Urobilinogen Negative (Negative) 03/15/23 19:22 Ur Leukocyte Esterase Negative (Negative) 09/23/22 19:22 SARS-CoV-2, RNA, NAAT NEGATIVE (NEGATIVE) 09/23/22 21:53 Impressions Abdomen/Pelvis CT 09/23/22 20:28 CT SCAN OF THE ABDOMEN AND PELVIS WITH IV CONTRAST CLINICAL HISTORY: Generalized abdominal pain. Crohn's disease. COMPARISON STUDY: Abdominal CT dated 05/30/2020. TECHNIQUE: Following the IV administration of 87 cc of Optiray 350, CT scan of the abdomen and pelvis is performed from the lung bases to the proximal femora. Images are reviewed in the axial, sagittal, and coronal planes. IV contrast was administered without complication. A dose lowering technique was utilized adhering to the principles of ALARA. CT DOSE: 1428.89 mGy.cm FINDINGS: Lung bases: The heart is normal in size and without pericardial effusion. The lung bases are clear. Liver: The contrast-enhanced liver is normal in size, contour, and attenuation. There is no intrahepatic biliary ductal dilatation. The hepatic veins and portal veins are patent. Gallbladder: Unremarkable. Spleen: Normal in size and attenuation. Pancreas: Unremarkable. Adrenal glands: Unremarkable. Kidneys: The contrast enhanced kidneys are normal in size and without hydronephrosis. The kidneys enhance symmetrically. Abdominal vasculature: The abdominal aorta is normal in course and caliber. Bowel: There is a long segment of wall thickening and hyperemia involving the distal/terminal ileum. The proximal small bowel is significantly distended and fluid-filled, with loops measuring up to 4.2 cm diameter. A focal transition point is seen in the right lower quadrant about the inflamed loops of bowel on image #[id number]. This is consistent with a small bowel obstruction. An underlying st ricture is suspect. The distal ileum and colon are decompressed. The appendix is well-visualized and normal. Peritoneum: No intraperitoneal free air is seen. There is a small volume of free fluid in the pelvis. There is a fat-containing umbilical hernia. Lymphadenopathy: There is trace interloop fluid. No pneumatosis intestinalis or portal venous gas is seen. Numerous prominent right lower quadrant mesenteric lymph nodes measure up to 11 mm short axis. Pelvic viscera: The bladder, prostate, and seminal vesicles are normal as imaged. There is no evidence of perianal disease. Skeletal structures: Scattered bone islands are seen in the pelvis. No lytic or blastic lesions are seen. IMPRESSION: 1. There is a long segment of wall thickening and mucosal hyperemia involving the distal/terminal ileum. This is consistent with the patient's history of Crohn's, and likely represents active disease. 2. There is a small bowel obstruction. A focal transition point is seen involving the ileum in the right lower quadrant above the inflamed distal small bowel. An underlying stricture is favored. 3. There is interloop fluid and a small volume of free fluid in the pelvis. No abscess is seen. 4. No intraperitoneal free air is identified. No pneumatosis intestinalis or portal venous gas is seen. 5. Additional findings as above. ACT 112: Negative or not required by law. Electronically signed by: Deuce Ambrose M.D. 09/23/2022 9:23 PM PG Care Time/CCT Total # of Minutes Spent Total Time Spent: 62 Total Time Spent with Patient: Total time spent is greater than 50% in coordination of care (as documented) at patient's floor/unit and/or counseling patient: Total time for today's consult includes reviewing records prior to patient arrival 23 minutes, face to face visit 16 minutes as well as record documentation after encounter 21 minutes. Coding Level of Care Code 72612 IN/OBS CONSULT LVL 4,60M Diagnoses Crohn's ileitis K50.00 Small bowel obstruction K56.609 Ileal stenosis K56.699 Time Spent (min) 62
--- NOTE | 2022-09-24 12:19 | Hospitalist Progress Note ---
Date of Service September 24, 2022 Assessment & Plan (1) Small bowel obstruction: Plan: Small bowel obstruction most likely secondary to stricture from his underlying Crohn's inflammation Clinically improving with no nausea, decreased bloating sensation, now passing gas Patient does not have an NG tube in. Improving without it. Continue conservative management Continue IV fluids Continue n.p.o. (2) Crohn's colitis: Plan: Patient has active Crohn's flare at this time Continue methylprednisolone 40 mg IV every 8 GI on board Patient will eventually need an elective bowel resection followed by initiation of biologic therapy, per GI. Continue Zosyn for now Continue morphine for now (3) Attention deficit disorder (ADD): (4) Abdominal pain: Plan: Plan per above (5) Crohn's disease: Plan: Plan per above Admission and Anticipated Discharge Date Admission Date: September 23, 2022 Subjective Patient says that he feels better overall. Not nauseous anymore. He says that he is passing flatus. Has not had a bowel movement yet. He still has the abdominal pain but is not as bloated today. Review of Systems Review of Systems: All systems reviewed & are unremarkable except as noted in Subjective Physical Exam Physical Exam: General: Awake, conversant Heart: S1, S2/regular rate and rhythm, no murmur rubs or gallops Lungs: Clear to auscultation bilaterally. Normal effort Abdomen: Soft/nontender/nondistended. No hepatosplenomegaly Extremities: No clubbing/cyanosis. No edema Behavior: Appropriate, cooperative Results & Data Results & Data Vital Signs (Past 12 Hours) Vital Signs Temp Pulse Resp BP Pulse Ox O2 Del Method 09/24/22 07:22 36.9 C 76 16 128/80 95 Room Air Laboratory Results Abnormal lab results 09/23/22 09/23/22 09/24/22 Range/Units 19:22 19:22 07:16 RBC 4.51 L (4.70-6.10) M/uL Hgb 13.6 L 12.9 L (14.0-18.0) g/dl Hct 40.1 L 38.2 L (42.0-52.0) % MPV 9.2 L 9.3 L (9.4-12.4) fL Neut # (Auto) 7.94 H 8.04 H (1.40-6.50) K/uL Lymph # (Auto) 0.89 L 0.48 L (1.2-3.4) K/uL BUN/Creatinine Ratio 22.1 H (10-20) Glucose 113 H (70-99(Fasting)) mg/dl Globulin (2.5-4.0) gm/dl Lipase 9 L (11-82) U/L 09/24/22 Range/Units 07:16 RBC (4.70-6.10) M/uL Hgb (14.0-18.0) g/dl Hct (42.0-52.0) % MPV (9.4-12.4) fL Neut # (Auto) (1.40-6.50) K/uL Lymph # (Auto) (1.2-3.4) K/uL BUN/Creatinine Ratio (10-20) Glucose 135 H (70-99(Fasting)) mg/dl Globulin 2.3 L (2.5-4.0) gm/dl Lipase (11-82) U/L Diagnostic Findings Abdomen/Pelvis CT 09/23/22 20:28 CT SCAN OF THE ABDOMEN AND PELVIS WITH IV CONTRAST CLINICAL HISTORY: Generalized abdominal pain. Crohn's disease. COMPARISON STUDY: Abdominal CT dated 05/30/2020. TECHNIQUE: Following the IV administration of 87 cc of Optiray 350, CT scan of the abdomen and pelvis is performed from the lung bases to the proximal femora. Images are reviewed in the axial, sagittal, and coronal planes. IV contrast was administered without complication. A dose lowering technique was utilized adhering to the principles of ALARA. CT DOSE: 1428.89 mGy.cm FINDINGS: Lung bases: The heart is normal in size and without pericardial effusion. The lung bases are clear. Liver: The contrast-enhanced liver is normal in size, contour, and attenuation. There is no intrahepatic biliary ductal dilatation. The hepatic veins and portal veins are patent. Gallbladder: Unremarkable. Spleen: Normal in size and attenuation. Pancreas: Unremarkable. Adrenal glands: Unremarkable. Kidneys: The contrast enhanced kidneys are normal in size and without hydronephrosis. The kidneys enhance symmetrically. Abdominal vasculature: The abdominal aorta is normal in course and caliber. Bowel: There is a long segment of wall thickening and hyperemia involving the distal/terminal ileum. The proximal small bowel is significantly distended and fluid-filled, with loops measuring up to 4.2 cm diameter. A focal transition point is seen in the right lower quadrant about the inflamed loops of bowel on image #[id number]. This is consistent with a small bowel obstruction. An underlying stricture is suspect. The distal ileum and colon are decompressed. The appendix is well-visualized and normal. Peritoneum: No intraperitoneal free air is seen. There is a small volume of free fluid in the pelvis. There is a fat-containing umbilical hernia. Lymphadenopathy: There is trace interloop fluid. No pneumatosis intestinalis or portal venous gas is seen. Numerous prominent right lower quadrant mesenteric lymph nodes measure up to 11 mm short axis. Pelvic viscera: The bladder, prostate, and seminal vesicles are normal as imaged. There is no evidence of perianal disease. Skeletal structures: Scattered bone islands are seen in the pelvis. No lytic or blastic lesions are seen. IMPRESSION: 1. There is a long segment of wall thickening and mucosal hyperemia involving the distal/terminal ileum. This is consistent with the patient's history of Crohn's, and likely represents active disease. 2. There is a small bowel obstruction. A focal transition point is seen involving the ileum in the right lower quadrant above the inflamed distal small bowel. An underlying stricture is favored. 3. There is interloop fluid and a small volume of free fluid in the pelvis. No abscess is seen. 4. No intraperitoneal free air is identified. No pneumatosis intestinalis or portal venous gas is seen. 5. Additional findings as above. ACT 112: Negative or not required by law. Electronically signed by: Deuce Ambrose M.D. 09/23/2022 9:23 PM PG Care Time/CCT Total # of Minutes Spent Total Time Spent with Patient: Total time spent is greater than 50% in coordination of care (as documented) at patient's floor/unit and/or counseling patient: Coding Level of Care Code 03279 SUB INP/OBS CARE 2/35MIN Diagnoses Small bowel obstruction K56.609 Crohn's colitis K50.10 Attention deficit disorder (ADD) F98.8 Abdominal pain R10.9 Crohn's disease K50.90
[2022-09-24] MEDS: NSS + 20MEQ KCL 20 MEQ/1,000 ML BAG IV SCH (12:30)
--- NOTE | 2022-09-24 15:38 | Surgery Progress Note ---
Date of Service September 24, 2022 Assessment & Plan (1) Crohn's ileitis: Plan: Continue medical management of his Crohn's ileitis and small bowel obstruction We will continue to follow along, but no plans for any surgical intervention I did discuss with him that he should follow-up with his colorectal surgeon for elective resection (2) Small bowel obstruction: Admission and Anticipated Discharge Date Admission Date: September 23, 2022 Subjective Patient seen and examined. Still with some abdominal pain, improved from admission. Afebrile. He is passing flatus. Had a bowel movement yesterday morning. Review of Systems Constitutional: no fever and no chills Gastrointestinal: + abdominal pain; no nausea and no vomiting Physical Exam Constitutional: WD/WN, vitals as above Gastrointestinal (Abdomen): Inspection/Auscultation: abdomen normal to inspection; abdomen not distended Percussion/Palpation: + abdomen tender (Mild diffuse) and abdomen soft; no guarding, abdomen not rigid and no hernia Results & Data Vital Signs (Past 12 Hours) Vital Signs Temp Pulse Resp BP Pulse Ox O2 Del Method 09/24/22 14:34 36.6 C 73 16 116/70 98 Room Air 09/24/22 07:22 36.9 C 76 16 128/80 95 Room Air PG Care Time/CCT Total # of Minutes Spent Total Time Spent with Patient: Total time spent is greater than 50% in coordination of care (as documented) at patient's floor/unit and/or counseling patient: Coding Level of Care Code 82267 SUB INP/OBS CARE 08/05MIN Diagnoses Crohn's ileitis K50.00 Small bowel obstruction K56.609
[2022-09-25] MEDS: NSS + 20MEQ KCL 20 MEQ/1,000 ML BAG IV SCH ×2 (03:04→17:24)
[2022-09-25] MEDS: MoRPHine SULFATE 2 MG/ML CARP IV PRN ×4 (03:05→12:47)
[2022-09-25] MEDS: PIPERACILLIN/TAZOBACTAM 4.5 GM in DEXTROSE 5% 100 ML IV SCH ×3 (06:02→21:17)
[2022-09-25] MEDS: methylPREDNISolone 40 MG in SYRINGE 0 ML IV SCH ×3 (07:34→23:58)
[2022-09-25 08:46] LABS: Basophils # (auto) 0.01 K/uL (0-0.2); Basophils % (auto) 0.2 %; Hematocrit (blood only) 33.7 % (42.0-52.0); Hemoglobin 11.5 g/dl (14.0-18.0); Immature Granulocytes # (auto) 0.01 K/uL (0.01-0.20); Immature Granulocytes % (auto) 0.2 %; Lymphocytes # (auto) 0.84 K/uL (1.2-3.4); Lymphocytes % (auto) 16.3 %; Mean Corpuscular Hemoglobin 28.6 pg (25.0-34.0); Mean Corpuscular Hgb Conc 34.1 g/dL (32.0-36.0); Mean Corpuscular Volume 83.8 fL (80.0-100.0); Mean Platelet Volume 9.4 fL (9.4-12.4); Monocytes # (auto) 0.36 K/uL (0.11-0.59); Neutrophils # (auto) 3.94 K/uL (1.40-6.50); Neutrophils % (auto) 76.3 %; Platelet Count 302 K/uL (130-400); RDW Coefficient of Variation 13.5 % (11.5-14.5); RDW Standard Deviation 41.3 fL (36.4-46.3); Red Blood Count 4.02 M/uL (4.70-6.10); White Blood Count 5.16 K/ul (4.8-10.8)
[2022-09-25 09:08] LABS: Albumin Globulin Ratio 1.7 (0.9-2); Albumin Level 3.8 gm/dl (3.4-5.0); BUN Creatinine Ratio 17.1 (10-20); Bilirubin,Total 0.6 mg/dl (0.2-1.0); Calcium 8.4 mg/dl (8.5-10.1); Creatinine Clr Calc Pharmacy 187.2 ml/min; Est GFR (Non-African American) 117.4 ml/min; Globulin 2.2 gm/dl (2.5-4.0); Magnesium 2.2 mg/dl (1.7-2.4)
--- NOTE | 2022-09-25 09:41 | Gastroenterology Progress Note ---
Date of Service September 25, 2022 Assessment & Plan (1) Crohn's ileitis: (2) Small bowel obstruction: (3) Ileal stenosis: Plan 1. Clear liquid diet. 2. Agree with IV Solu-Medrol as prescribed by primary team. 3. Ultimately, patient requires an elective bowel resection followed by in itiation of biologic therapy post-operatively to prevent recurrent hospital admissions for bowel obstructions. Patient now agreeable to follow up with [facility] colorectal surgery upon discharge to arrange elective resection in the near future. 4. Continue supportive care. Admission and Anticipated Discharge Date Admission Date: September 23, 2022 Subjective Patient reports improved abdominal pain today. Passing more flatus. No n/v. Continues IV Solu-Medrol. No bm since admission. Abdominal distention improved. Review of Systems Constitutional: no fever and no chills Gastrointestinal: as per Subjective / HPI Physical Exam Constitutional: WD/WN, vitals as above Respiratory: normal respiratory effort, lungs clear to auscultation Cardiovascular: RRR, no murmur, no edema Gastrointestinal (Abdomen): Inspection/Auscultation: + abdomen distended and normal bowel sounds Percussion/Palpation: abdomen soft; abdomen nontender, no guarding and abdomen not rigid Psychiatric: A+Ox3, euthymic affect Results & Data Results & Data Vital Signs (Past 12 Hours) Vital Signs Temp Pulse Resp BP Pulse Ox O2 Del Method 09/25/22 07:35 36.7 C 74 16 119/71 96 Room Air PG Care Time/CCT Total # of Minutes Spent Total Time Spent with Patient: Total time spent is greater than 50% in coordination of care (as documented) at patient's floor/unit and/or counseling patient: Coding Level of Care Code 56974 SUB INP/OBS CARE 3/50MIN Diagnoses Crohn's ileitis K50.00 Small bowel obstruction K56.609 Ileal stenosis K56.699
--- NOTE | 2022-09-25 11:09 | Surgery Progress Note ---
Date of Service September 25, 2022 Assessment & Plan (1) Ileal stenosis: Plan: Patient is being medically treated for his Crohn's disease which is likely causing his small bowel obstruction He is improving, no plans for surgery We did discuss that he should follow-up with his colorectal surgeon as an outpatient and is already established for discussion about elective resection Surgery will sign off at this time, please call with any questions or concerns (2) Small bowel obstruction: (3) Crohn's disease: Admission and Anticipated Discharge Date Admission Date: September 23, 2022 Subjective Patient seen and examined. Minimal abdominal pain. He is passing flatus. No BM. Denies nausea or vomiting. Physical Exam Constitutional: WD/WN, vitals as above Gastrointestinal (Abdomen): Inspection/Auscultation: abdomen normal to inspection; abdomen not distended Percussion/Palpation: abdomen soft; abdomen nontender, no guarding and abdomen not rigid Results & Data Vital Signs (Past 12 Hours) Vital Signs Temp Pulse Resp BP Pulse Ox O2 Del Method 09/25/22 07:35 36.7 C 74 16 119/71 96 Room Air PG Care Time/CCT Total # of Minutes Spent Total Time Spent with Patient: Total time spent is greater than 50% in coordination of care (as documented) at patient's floor/unit and/or counseling patient: Coding Level of Care Code 06710 SUB INP/OBS CARE 08/05MIN Diagnoses Ileal stenosis K56.699 Small bowel obstruction K56.609 Crohn's disease K50.90
--- NOTE | 2022-09-25 16:57 | Hospitalist Progress Note ---
Date of Service September 25, 2022 Assessment & Plan (1) Small bowel obstruction: Plan: Small bowel obstruction most likely secondary to stricture from his underlying Crohn's inflammation Clinically improving with no nausea, decreased bloating sensation, now passing gas Patient does not have an NG tube in. Improving without it. Continue conservative management Continue IV fluids Patient was started on a clear liquid diet. Discontinue IV narcotics Surgery signed off as bowel obstruction improving (2) Crohn's colitis: Plan: Patient has active Crohn's flare at this time Continue methylprednisolone 40 mg IV every 8 GI on board Patient will eventually need an elective bowel resection followed by initiation of biologic therapy, per GI. Continue Zosyn for now Discontinue IV narcotics (3) Attention deficit disorder (ADD): (4) Abdominal pain: Plan: Plan per above (5) Crohn's disease: Plan: Plan per above Admission and Anticipated Discharge Date Admission Date: September 23, 2022 Subjective Nausea resolved. Pain improving. Tolerating clear liquid diet. Review of Systems Review of Systems: All systems reviewed & are unremarkable except as noted in Subjective Physical Exam Physical Exam: General: Awake, conversant Heart: S1, S2/regular rate and rhythm, no murmur rubs or gallops Lungs: Clear to auscultation bilaterally. Normal effort Abdomen: Soft/nontender/nondistended. No hepatosplenomegaly Extremities: No clubbing/cyanosis. No edema Behavior: Appropriate, cooperative Results & Data Results & Data Vital Signs (Past 12 Hours) Vital Signs Temp Pulse Pulse Resp BP Pulse Ox O2 Del Method 09/25/22 14:59 36.9 C 64 16 142/85 H 96 Room Air 09/25/22 07:35 36.7 C 74 16 119/71 96 Room Air Laboratory Results Abnormal lab results 09/25/22 09/25/22 Range/Units 08:11 08:11 RBC 4.02 L (4.70-6.10) M/uL Hgb 11.5 L (14.0-18.0) g/dl Hct 33.7 L (42.0-52.0) % Lymph # (Auto) 0.84 L (1.2-3.4) K/uL Chloride 108 H (98-107) mmol/L Glucose 116 H (70-99(Fasting)) mg/dl Calcium 8.4 L (8.5-10.1) mg/dl Globulin 2.2 L (2.5-4.0) gm/dl PG Care Time/CCT Total # of Minutes Spent Total Time Spent with Patient: Total time spent is greater than 50% in coordination of care (as documented) at patient's floor/unit and/or counseling patient: Coding Level of Care Code 66611 SUB INP/OBS CARE 2/35MIN Diagnoses Small bowel obstruction K56.609 Crohn's colitis K50.10 Attention deficit disorder (ADD) F98.8 Abdominal pain R10.9 Crohn's disease K50.90
[2022-09-25] MEDS: oxyCODONE HCL IR 5 MG TAB (IMMEDIATE RELEASE) PO PRN ×2 (17:24→23:56)
[2022-09-25] MEDS: ACETAMINOPHEN 1,000 MG/100 ML VIAL IV PRN (20:14)
[2022-09-26] MEDS: NSS + 20MEQ KCL 20 MEQ/1,000 ML BAG IV SCH (05:34)
[2022-09-26] MEDS: PIPERACILLIN/TAZOBACTAM 4.5 GM in DEXTROSE 5% 100 ML IV SCH (05:38)
[2022-09-26 06:54] LABS: Hematocrit (blood only) 31.5 % (42.0-52.0); Hemoglobin 10.4 g/dl (14.0-18.0); Immature Granulocytes # (auto) 0.01 K/uL (0.01-0.20); Immature Granulocytes % (auto) 0.2 %; Lymphocytes # (auto) 0.82 K/uL (1.2-3.4); Lymphocytes % (auto) 15.6 %; Mean Corpuscular Hemoglobin 28.3 pg (25.0-34.0); Mean Corpuscular Volume 85.6 fL (80.0-100.0); Mean Platelet Volume 9.4 fL (9.4-12.4); Monocytes # (auto) 0.18 K/uL (0.11-0.59); Monocytes % (auto) 3.4 %; Neutrophils # (auto) 4.25 K/uL (1.40-6.50); Neutrophils % (auto) 80.8 %; Platelet Count 270 K/uL (130-400); RDW Coefficient of Variation 13.4 % (11.5-14.5); RDW Standard Deviation 41.4 fL (36.4-46.3); Red Blood Count 3.68 M/uL (4.70-6.10); White Blood Count 5.26 K/ul (4.8-10.8)
[2022-09-26 07:20] LABS: Albumin Globulin Ratio 1.8 (0.9-2); Albumin Level 3.6 gm/dl (3.4-5.0); BUN Creatinine Ratio 15.9 (10-20); Bilirubin,Total 0.5 mg/dl (0.2-1.0); Calcium 8.1 mg/dl (8.5-10.1); Creatinine Clr Calc Pharmacy 173.5 ml/min; Est GFR (African American) 131.9 ml/min; Est GFR (Non-African American) 113.8 ml/min; Magnesium 2.1 mg/dl (1.7-2.4); Potassium 4.1 mmol/L (3.5-5.1); Total Protein 5.6 gm/dl (6.0-8.3)
[2022-09-26] MEDS: oxyCODONE HCL IR 5 MG TAB (IMMEDIATE RELEASE) PO PRN (07:30)
[2022-09-26] MEDS: methylPREDNISolone 40 MG in SYRINGE 0 ML IV SCH (08:17)
--- NOTE | 2022-09-26 11:36 | Discharge Summary ---
Date of Service September 26, 2022 Admission HPI Per Admitting Provider The patient is a 37-year-old male with past medical history including Crohn's disease, ADD, Crohn's ileitis, and obesity. He presents to the emergency department with symptoms as noted above. CT scan of abdomen pelvis was consistent with small bowel obstruction with transition point in the right lower quadrant above an area of active inflammation in the distal/terminal ileum consistent with a Crohn's exacerbation. There is also thought to be an underlying stricture in this area. From the ED the patient received the following: Normal saline 1 L, morphine sulfate 4 mg IV x2, Tylenol 1 g IV. Admission Exam Per Admitting Provider The patient is awake, alert and oriented 3, well developed and well nourished, normocephalic and atraumatic, lying in bed and in no acute distress. HEENT--PERRL, EOMI, mucous membranes and oropharynx dry. Neck--supple. No JVD. No bruits. Thyroid normal, trachea midline, no adenopathy. Heart--normal S1 and S2. No murmurs, rubs or gallops. Lungs--clear bilaterally, no respiratory distress, no accessory muscle use. Abdomen--normal bowel sounds and soft. Nontender. Nondistended, no hernias or masses, no organomegaly. Extremities--no cyanosis or clubbing. No edema. Dermatologic--normal skin turgor, normal color, no abnormal lymph nodes, no rash. Neurologic--cranial nerves II through XII grossly intact. Rheumatologic--normal range of motion. Psychiatric--normal affect. Principal Diagnosis Crohn's exacerbation with Crohn's ileitis, small bowel obstruction due to stricture related to Crohn's Discharge Exam General: Awake, conversant Heart: S1, S2/regular rate and rhythm, no murmur rubs or gallops Lungs: Clear to auscultation bilaterally. Normal effort Abdomen: Soft/nontender/nondistended. No hepatosplenomegaly Extremities: No clubbing/cyanosis. No edema Behavior: Appropriate, cooperative Discharge Data Allergies Allergy/AdvReac Type Severity Reaction Status Date / Time NSAIDS (Non-Steroidal AdvReac Severe CROHNS Verified 09/23/22 21:39 Anti-Inflamma DISEASE--INSTRUCTED TO AVOID Consultations 09/23/22 21:40 Consult General Surgery Stat ED Decision to Admit Stat 09/23/22 23:38 Consult Gastroenterology Routine Ordered Studies 09/23/22 20:28 CT Abd and Pelvis [CT abd pelvis IV con only] Stat Hospital Course (1) Small bowel obstruction: Small bowel obstruction most likely secondary to stricture from his underlying Crohn's inflammation Clinically improving with no nausea, decreased bloating sensation. Had a bowel movement this morning Improved with conservative management Tolerated regular diet this morning. (2) Crohn's colitis: Patient has active Crohn's flare at this time Discontinue IV Solu-Medrol. Switch to prednisone. Will discharge on 50 mg of prednisone with weekly taper by 10 mg Outpatient follow-up with GI, general surgery, PCP Patient will eventually need an elective bowel resection followed by initiation of biologic therapy, per GI. (3) Attention deficit disorder (ADD): (4) Abdominal pain: Plan per above (5) Crohn's disease: Plan per above Total Time Total Time Spent Total Time Spent (In Minutes): 35 Discharge Plan Discharge Items Patient Disposition: Home - Self-Care Reason For Visit: sbo, crohn's exacerbation Discharge Diagnosis: chron's flare, bowel obstruction Activity: Resume your previous activity Non-emergency contact: Primary Care Provider Call non-emergency contact if: your symptoms worsen Follow-up/Referrals: Bo Baxter DO [Physician] - Stew iL DO [Primary Care Provider] - Cole Grimm DO [Physician] - Diet: Regular Addtl Attending Provider Instructions: Advised to follow-up with PCP in 1 week Advised to follow-up with GI in 2 weeks Advised to follow-up with surgery in 1 month Pending Studies at Discharge: No Stand-Alone Forms: [facility] [employer], Work/School Release Medications and DC Order Prescriptions: New prednisone 10 mg tablet 50 mg PO DAILY Qty: 120 0RF Rx Instructions: 5 tabs for 1 week, then drop by 1 tab every week, then stop No Action No Known Home Medications Discharge Orders: Discharge Order (Routine); Ordered 09/26/22 Ordered By: Li Scanlon/Other Patient Handouts: Crohns Disease Dc, Crohns Disease Lifestyle Changes Admission Data Admit Date/Time: 09/23/22 22:45 Attending Provider: Li Robb Admit Provider: Gama Weldon Primary Care Provider: Stew Li Other Providers: Amrit Olivo ; Cole Grimm ; Bo Baxter Other Interventions: Discharge Summary Assessment (RN) Last Done: 09/26/22 12:49 Coding Level of Care Code 61043 INP/OBS DISCH >30 MIN Diagnoses Small bowel obstruction K56.609 Crohn's colitis K50.10 Attention deficit disorder (ADD) F98.8 Abdominal pain R10.9 Crohn's disease K50.90
== END 2022-09-26 13:12 | disposition home or self-care (01) | DRG 387 ==
LOC: ED 18:44 → 3W 22:45 → SUATTDRO 22:45 → 3W 23:17
DX: Z91.A28 Caregiver's intentional underdosing of medication regimen for other reason; Z88.6 Allergy status to analgesic agent; Z87.891 Personal history of nicotine dependence; K50.012 Crohn's disease of small intestine with intestinal obstruction; Z20.822 Contact with and (suspected) exposure to COVID-19; T47.8X6A Underdosing of other agents primarily affecting gastrointestinal system, initial encounter; E66.9 Obesity, unspecified; Z68.38 Body mass index [BMI] 38.0-38.9, adult